=== PATIENT | male | born 1950 | race Caucasian/White ===

== ENCOUNTER → 2018-03-28 07:51 | Outpatient (CLI) | payer BC, SELFPAY ==
[2018-03-28 08:54] LABS: Add Manual Diff / Slide Review NO; Basophils Percent Auto 0.4 % (0-2); Eosinophils Percent Auto 3.1 % (2-4); Hematocrit 43.7 % (41-53); Hemoglobin 15.5 g/dL (13.5-17.5); Lymphocytes Percent Auto 6.7 % (25-40); Mean Corpuscular HGB Conc 35.6 % (30-36); Mean Corpuscular Hemoglobin 30.9 PG (26-34); Mean Corpuscular Volume 86.9 fL (80-100); Monocytes Percent Auto 7.8 % (3-14); Neutrophils Absolute Auto 11000 /uL (3000-5900); Platelet Count 170 X10^3/uL (150-400); Red Blood Cell Count 5.03 X10^6/uL (4.5-5.9); Red Cell Distribution Width 13.1 % (11.6-14.8); White Blood Cell Count 13.5 X10^3/uL (4.5-11.0)
[2018-03-28 09:27] LABS: Alanine Aminotransferase 34 IU/L (21-72); Albumin 4.1 g/dL (3.5-5.0); Albumin Globulin Ratio 1.5 (1.0-2.8); Alkaline Phosphatase 67 U/L (38-126); Aspartate Aminotransferase 31 IU/L (17-59); BUN Creatinine Ratio 25.7 (6-22); Bilirubin Total 0.7 mg/dL (0.2-1.3); Blood Urea Nitrogen 18 mg/dL (9-20); Calcium 9.9 mg/dL (8.4-10.2); Carbon Dioxide 29 mmol/L (22-32); Chloride 104 mmol/L (98-107); Cholesterol 169 mg/dL (140-199); Estimated Glomerular Filt Rate > 60.0 mL/min (>60); Globulin 2.7 g/dL (1.7-4.1); Glucose 94 mg/dL (80-110); HDL Cholesterol 38 mg/dL (40-60); HEMOLYSIS < 15 (0-50); LDL Cholesterol Calculated 93 mg/dL (<100); Sodium 144 mmol/L (137-145); Total Protein 6.8 g/dL (6.3-8.2); Triglycerides 192 mg/dL (35-150)
[2018-03-28 09:57] LABS: Thyroid Stimulating Hormone 7.52 uIU/mL (0.47-4.68)
[2018-03-28 09:58] LABS: Prostate Specific Antigen Scrn 0.434 ng/mL (0.1-4.0)
== END ==
PROVIDERS: PCP Family Medicine; Visit Provider Family Medicine
DX: Z12.5 Encounter for screening for malignant neoplasm of prostate (principal); Z13.220 Encounter for screening for lipoid disorders; Z13.29 Encounter for screening for other suspected endocrine disorder
CPT/HCPCS: 36415; 80053; 80061; 84443; 85025; G0103

== ENCOUNTER → 2018-06-01 09:31 | Outpatient (CLI) | payer BC, SELFPAY ==
[2018-06-01 09:59] LABS: Add Manual Diff / Slide Review NO; Basophils Percent Auto 0.9 % (0-2); Eosinophils Percent Auto 5.4 % (2-4); Hematocrit 43.9 % (41-53); Hemoglobin 15.2 g/dL (13.5-17.5); Lymphocytes Percent Auto 20.1 % (25-40); Mean Corpuscular HGB Conc 34.6 % (30-36); Mean Corpuscular Hemoglobin 30.2 PG (26-34); Mean Corpuscular Volume 87.2 fL (80-100); Monocytes Percent Auto 11.3 % (3-14); Neutrophils Absolute Auto 3300 /uL (3000-5900); Neutrophils Percent Auto 62.3 % (50-75); Platelet Count 176 X10^3/uL (150-400); Red Blood Cell Count 5.04 X10^6/uL (4.5-5.9); Red Cell Distribution Width 12.7 % (11.6-14.8); White Blood Cell Count 5.2 X10^3/uL (4.5-11.0)
[2018-06-01 10:58] LABS: Free T3, Triiodothyronine Free 2.88 pg/mL (2.77-5.27); Free T4, Direct Thyroxine 0.58 ng/dL (0.78-2.19)
[2018-06-01 11:12] LABS: Thyroid Stimulating Hormone 5.63 uIU/mL (0.47-4.68)
== END ==
PROVIDERS: PCP Family Medicine; Visit Provider Family Medicine
DX: D72.829 Elevated white blood cell count, unspecified (principal); R79.89 Other specified abnormal findings of blood chemistry
CPT/HCPCS: 36415; 84439; 84443; 84481; 85025

== ENCOUNTER → 2018-08-02 10:32 | Outpatient (CLI) | payer BC, SELFPAY ==
--- NOTE | 2018-08-02 10:33 | DI.US.S_ITS ---
PROCEDURE: US THYROID INDICATIONS: ELEVATED TSH TECHNIQUE: Real-time scanning was performed of the thyroid gland, with image documentation. COMPARISON: None. FINDINGS: Right: Thyroid lobe measures 3.9 x 2.7 x 1.5 cm, and is diffusely heterogeneous in echotexture. Left: Thyroid lobe measures 3.7 x 1.9 x 1.6 cm, and is diffusely heterogeneous in echotexture. Isthmus: 4.5 mm thick. IMPRESSION: Diffusely heterogeneous thyroid. No focal nodules. Dictated by: Nasir Craft [facility] Interpreted: Nathan Nunez MD on 08/02/2018 at 11:30 Approved by: Nathan Nunez M.D. on 08/02/2018 at 13:23
== END ==
PROVIDERS: PCP Family Medicine; Visit Provider Family Medicine
DX: E07.9 Disorder of thyroid, unspecified (principal); R79.89 Other specified abnormal findings of blood chemistry
CPT/HCPCS: 76536

== ENCOUNTER → 2018-09-13 14:46 | Outpatient (CLI) | payer BC, SELFPAY ==
[2018-09-13 16:10] LABS: TSH w/ Reflex to FT4 2.79 uIU/mL (0.47-4.68)
== END ==
PROVIDERS: PCP Family Medicine; Visit Provider Family Medicine
DX: E03.9 Hypothyroidism, unspecified (principal)
CPT/HCPCS: 36415; 84443

== ENCOUNTER → 2018-11-16 14:09 | Outpatient (CLI) | payer BC, SELFPAY ==
--- NOTE | 2018-11-16 14:12 | DI.RAD.S_ITS ---
PROCEDURE: XR CHEST 2V INDICATIONS: Rib pain TECHNIQUE: 2 views of the chest were acquired. COMPARISON: None. FINDINGS: Surgical changes and devices: None. Lungs and pleura: Hyperinflation. Lungs are clear. No pleural effusions or pneumothorax. Mediastinum: Mediastinal contours are normal. Heart size is normal. Bones and chest wall: No suspicious bony abnormalities. Soft tissues appear unremarkable. There is left shoulder arthroplasty with a shoulder prosthesis in anatomic alignment. IMPRESSION: No acute cardiopulmonary disease. Hyperinflation suggesting COPD. Dictated by: Francisco Miranda M.D. on 11/16/2018 at 14:26 Approved by: Francisco Miranda M.D. on 11/16/2018 at 14:27
== END ==
PROVIDERS: PCP Family Medicine; Visit Provider Registered Nurse
DX: R07.81 Pleurodynia (principal)
CPT/HCPCS: 71046

== ENCOUNTER → 2019-11-07 10:01 | Outpatient (CLI) | payer BC, SELFPAY ==
[2019-11-07 12:07] LABS: Prostate Specific Antigen Scrn 0.461 ng/mL (0.1-4.0)
== END ==
PROVIDERS: PCP Family Medicine; Referring Provider Registered Nurse; Visit Provider Registered Nurse
DX: Z12.5 Encounter for screening for malignant neoplasm of prostate (principal); R39.15 Urgency of urination
CPT/HCPCS: 36415; G0103

== ENCOUNTER → 2020-05-05 10:14 | Outpatient (CLI) | payer BC, SELFPAY ==
[2020-05-05 11:15] LABS: Alanine Aminotransferase 36 IU/L (<50); Albumin 4.3 g/dL (3.5-5.0); Albumin Globulin Ratio 1.5 (1.0-2.8); Alkaline Phosphatase 78 U/L (38-126); Aspartate Aminotransferase 45 IU/L (17-59); BUN Creatinine Ratio 31.7 (6-22); Bilirubin Total 0.7 mg/dL (0.2-1.3); Blood Urea Nitrogen 20 mg/dL (9-20); Carbon Dioxide 28 mmol/L (22-32); Chloride 104 mmol/L (98-107); Estimated Glomerular Filt Rate > 60.0 mL/min (>60); Globulin 2.9 g/dL (1.7-4.1); Glucose 107 mg/dL (80-110); HEMOLYSIS 38 (0-50); Potassium 4.3 mmol/L (3.4-5.1); Sodium 137 mmol/L (137-145); Total Protein 7.2 g/dL (6.3-8.2)
[2020-05-05 11:41] LABS: TSH w/ Reflex to FT4 5.81 uIU/mL (0.47-4.68)
[2020-05-05 12:06] LABS: Free T4, Direct Thyroxine 0.71 ng/dL (0.78-2.19)
== END ==
PROVIDERS: PCP Family Medicine; Referring Provider Family Medicine; Visit Provider Family Medicine
DX: E03.9 Hypothyroidism, unspecified (principal)
CPT/HCPCS: 36415; 80053; 84439; 84443

== ENCOUNTER → 2020-08-29 12:23 | Outpatient (CLI) | payer BC, SELFPAY ==
[2020-08-29 13:38] LABS: TSH w/ Reflex to FT4 3.62 uIU/mL (0.47-4.68)
== END ==
PROVIDERS: PCP Family Medicine; Referring Provider Family Medicine; Visit Provider Family Medicine
DX: E03.9 Hypothyroidism, unspecified (principal)
CPT/HCPCS: 36415; 84443

== ENCOUNTER → 2020-10-09 08:58 | Outpatient (CLI) | payer BC, SELFPAY ==
[2020-10-09] MEDS: COVID-19 VACC #1, MRNA(MOD) 100 MCG/0.5 ML VIAL IM (09:05)
== END ==
PROVIDERS: PCP Family Medicine; Visit Provider Internal Medicine
DX: Z23 Encounter for immunization (principal)
CPT/HCPCS: 0011A; 91301

== ENCOUNTER → 2020-11-06 08:25 | Outpatient (CLI) | payer BC, SELFPAY ==
[2020-11-06] MEDS: COVID-19 VACC #2, MRNA(MOD) 100 MCG/0.5 ML VIAL IM (08:30)
== END ==
PROVIDERS: PCP Family Medicine; Visit Provider Internal Medicine
DX: Z23 Encounter for immunization (principal)
CPT/HCPCS: 0012A; 91301

== ENCOUNTER → 2021-07-24 09:42 | Outpatient (CLI) | payer BC, SELFPAY ==
[2021-07-24] MEDS: COVID-19 VACC #3, MRNA(MOD) 50 MCG/0.25 ML VIAL IM (09:46)
== END ==
PROVIDERS: PCP Family Medicine; Visit Provider Internal Medicine
DX: Z23 Encounter for immunization (principal)
CPT/HCPCS: 0013A; 91301

== ENCOUNTER → 2022-04-09 11:40 | Outpatient (CLI) | payer BC, SELFPAY ==
[2022-04-09 12:15] LABS: Add Manual Diff / Slide Review NO; Basophils Absolute Auto 0 /uL (0-100); Basophils Percent Auto 0.8 % (0-2); Eosinophils Absolute Auto 200 /uL (0-450); Eosinophils Percent Auto 2.8 % (2-4); Hematocrit 43.6 % (41-53); Hemoglobin 15.3 g/dL (13.5-17.5); Lymphocytes Absolute Auto 1100 /uL (1100-4500); Lymphocytes Percent Auto 20.6 % (25-40); Mean Corpuscular Hemoglobin 30.7 PG (26-34); Mean Corpuscular Volume 87.7 fL (80-100); Monocytes Absolute Auto 600 /uL (0-900); Monocytes Percent Auto 11.3 % (3-14); Neutrophils Absolute Auto 3500 /uL (1500-7000); Neutrophils Percent Auto 64.5 % (50-75); Platelet Count 161 X10^3/uL (150-400); Red Blood Cell Count 4.97 X10^6/uL (4.5-5.9); Red Cell Distribution Width 12.7 % (11.6-14.8); White Blood Cell Count 5.5 X10^3/uL (4.5-11.0)
[2022-04-09 12:36] LABS: Alanine Aminotransferase 27 IU/L (<50); Albumin 4.4 g/dL (3.5-5.0); Albumin Globulin Ratio 1.6 (1.0-2.8); Alkaline Phosphatase 70 U/L (38-126); Aspartate Aminotransferase 38 IU/L (17-59); BUN Creatinine Ratio 26.5 (6-22); Blood Urea Nitrogen 18 mg/dL (9-20); Calcium 8.9 mg/dL (8.4-10.2); Carbon Dioxide 27 mmol/L (22-32); Chloride 103 mmol/L (98-107); Cholesterol 164 mg/dL (140-199); Estimated Glomerular Filt Rate > 60 mL/min (>60); Globulin 2.8 g/dL (1.7-4.1); Glucose 100 mg/dL (80-110); HDL Cholesterol 44 mg/dL (40-60); HEMOLYSIS < 15 (0-50); LDL Cholesterol Calculated 96 mg/dL (<100); Sodium 138 mmol/L (137-145); Total Protein 7.2 g/dL (6.3-8.2); Triglycerides 118 mg/dL (35-150)
[2022-04-09 13:07] LABS: Prostate Specific Antigen Scrn 0.508 ng/mL (0.1-4.0)
== END ==
PROVIDERS: PCP Family Medicine; Referring Provider Family Medicine; Visit Provider Family Medicine
DX: E03.9 Hypothyroidism, unspecified (principal); Z12.5 Encounter for screening for malignant neoplasm of prostate
CPT/HCPCS: 36415; 80053; 80061; 84443; 85025; G0103

== ENCOUNTER → 2022-10-19 09:30 | Outpatient (CLI) | payer BC, SELFPAY ==
--- NOTE | 2022-10-19 09:31 | DI.RAD.S_ITS ---
PROCEDURE: XR KNEE LT 3V INDICATIONS: Left knee pain, swelling - suspect OA TECHNIQUE: 3 views of the knee were acquired. COMPARISON: None. FINDINGS: Bones: No fractures or dislocations. No suspicious bony lesions. Mild tricompartmental knee joint degeneration. Minimal joint space narrowing with weight-bearing. Soft tissues: No joint effusion. No suspicious soft tissue calcifications. IMPRESSION: Mild osteoarthritic changes. Dictated by: Francisco Miranda M.D. on 10/19/2022 at 10:52 Approved by: Francisco Miranda M.D. on 10/19/2022 at 10:53
== END ==
PROVIDERS: PCP Family Medicine; Referring Provider Physician Assistant; Visit Provider Physician Assistant
DX: M25.562 Pain in left knee (principal)
CPT/HCPCS: 73562

== ENCOUNTER → 2022-11-12 13:04 | Outpatient (CLI) | payer MEDICARE, BC, SELFPAY ==
--- NOTE | 2022-11-12 | DI.MRI.S_ITS ---
PROCEDURE: MR KNEE LT WO CON INDICATIONS: L KNEE PAIN TECHNIQUE: Noncontrast sagittal PD fast spin echo and T2 fast spin echo with fat saturation, sagittal 3-D FLASH with fat saturation; coronal T1 spin echo and PD fast spin echo with fat saturation, and axial PD fast spin echo with fat saturation through the knee. COMPARISON: [facility], CR, XR KNEE LT 3V, 10/19/2022, 9:31. FINDINGS: Image quality: Excellent. Menisci: Medial extrusion of the medial meniscus is present. There is moderate ill-defined T2 signal elevation at the posterior meniscal capsular junction of the posterior horn medial meniscus. Vague linear oblique high T2 signal intensity traverses the peripheral 3rd of the posterior horn medial meniscus, demonstrating inferior articular surface extension. Linear horizontal high signal intensity traverses the lateral meniscal body, involving the inner, middle, and peripheral thirds, demonstrating superior articular surface extension. Cruciate ligaments: The anterior and posterior cruciate ligaments appear intact. Medial structures: The medial collateral ligament appears intact. Visualized portions of the pes anserinus tendons appear normal. No abnormal bursal fluid. There is moderate T2 signal elevation within and adjacent to the tibial insertion of the semimembranosus tendon. Lateral structures: The lateral collateral ligament demonstrates mild T2 signal elevation at the femoral origin. The long and short heads of the biceps femoris tendon appear intact. The popliteus tendon appears normal. Iliotibial band appears normal. Anterior structures: The quadriceps and patellar tendons appear intact. There is mild T2 signal elevation within the quadriceps and patellar tendons at the patellar insertion sites. Patellar alignment is normal. No femoral trochlear dysplasia or ventral trochlear prominence. No edema in the infrapatellar fat pad. Bones and cartilage: No bone marrow contusions or fractures. There is mild tricompartmental periarticular osteophyte formation. Moderate articular cartilage loss diffusely overlies the weight-bearing aspects of the medial femoral condyle and medial tibial plateau. Joint space: There is a small knee joint effusion and a small Huynh's cyst. Normal appearing synovial plicae are incidentally noted. IMPRESSION: 1. Medial and lateral meniscal tearing. 2. Tricompartmental osteoarthritis with associated articular cartilage loss. 3. Quadriceps and patellar tendinopathy. 4. Insertional tendinitis of the semimembranosus. 5. Knee joint effusion and Huynh's cyst. Dictated by: Raissa Price M.D. on 11/12/2022 at 13:59 Transcribed by: ARIANA on 11/12/2022 at 14:02 Approved by: Raissa Price M.D. on 11/12/2022 at 16:39
== END ==
PROVIDERS: PCP Family Medicine; Referring Provider Student in an Organized Health Care Education/Training Program; Visit Provider Student in an Organized Health Care Education/Training Program
DX: S83.242A Other tear of medial meniscus, current injury, left knee, initial encounter (principal); S83.282A Other tear of lateral meniscus, current injury, left knee, initial encounter; M76.52 Patellar tendinitis, left knee; M25.462 Effusion, left knee; M17.12 Unilateral primary osteoarthritis, left knee; M25.562 Pain in left knee
CPT/HCPCS: 73721

== ENCOUNTER → 2022-12-17 12:54 | Outpatient (CLI) | payer MEDICARE, BC, SELFPAY ==
--- NOTE | 2022-12-17 | DI.MRI.S_ITS ---
PROCEDURE: MR KNEE RT WO CON INDICATIONS: PAIN AND SWELLING IN RIGHT KNEE TECHNIQUE: Noncontrast sagittal PD fast spin echo and T2 fast spin echo with fat saturation, sagittal 3-D FLASH with fat saturation; coronal T1 spin echo and PD fast spin echo with fat saturation, and axial PD fast spin echo with fat saturation through the knee. COMPARISON: [facility], MR, MR KNEE LT WO CON, 11/12/2022, 13:29. FINDINGS: Image quality: Excellent. Menisci: T there is partial detachment of the medial meniscal body and posterior horn. Linear oblique high T2 signal intensity traverses the inner, middle, and peripheral thirds of the medial meniscal body and posterior horn demonstrating inferior articular surface extension, indicating oblique tearing. Truncation of the free edge of the posterior horn medial meniscus is present, indicating radial tearing. Linear oblique and horizontal high T2 signal intensity traverses the inner, middle, and peripheral thirds of the anterior horn and body of the lateral meniscus, demonstrating inferior articular surface extension, indicating complex tearing. Cruciate ligaments: There is moderate 10 UA mccartney in mild posterior bowing of the posterior cruciate ligament, indicating partial thickness tearing. Low-grade partial-thickness intrasubstance tearing of the mid and superior aspect of the posterior cruciate ligament. Medial structures: The medial collateral ligament appears intact. Visualized portions of the pes anserinus tendons appear normal. Mild T2 signal elevation within and adjacent to the tibial insertion site of the semimembranosus. No abnormal bursal fluid. Lateral structures: The lateral collateral ligament, long and short heads of the biceps femoris tendon appear intact. The popliteus tendon appears normal. Iliotibial band appears normal. Anterior structures: The quadriceps and patellar tendons appear intact. Patellar alignment is normal. No femoral trochlear dysplasia or ventral trochlear prominence. Moderate edema in the infrapatellar fat pad. Bones and cartilage: No bone marrow contusions or fractures. Mild tricompartmental periarticular osteophyte formation. Severe articular cartilage loss diffusely overlies the weight-bearing aspects of the medial femoral condyle and medial tibial plateau. Joint space: There is a small knee joint effusion and a trace Huynh's cyst. Small ganglion cyst along the popliteus. Normal appearing synovial plicae are incidentally noted. IMPRESSION: 1. Tricompartmental osteoarthritis with associated articular cartilage loss. 2. Medial and lateral meniscal tearing. 3. Partial-thickness tearing of the anterior and posterior cruciate ligaments. 4. Knee joint effusion and Huynh's cyst. 5. Insertional tendinitis of the semimembranosus. Dictated by: Raissa Price M.D. on 12/17/2022 at 13:59 Approved by: Raissa Price M.D. on 12/17/2022 at 14:02
== END ==
PROVIDERS: PCP Family Medicine; Referring Provider Student in an Organized Health Care Education/Training Program; Visit Provider Student in an Organized Health Care Education/Training Program
DX: S83.271A Complex tear of lateral meniscus, current injury, right knee, initial encounter (principal); S83.241A Other tear of medial meniscus, current injury, right knee, initial encounter; S83.511A Sprain of anterior cruciate ligament of right knee, initial encounter; S83.521A Sprain of posterior cruciate ligament of right knee, initial encounter; M17.11 Unilateral primary osteoarthritis, right knee; M71.21 Synovial cyst of popliteal space [Baker], right knee; M25.461 Effusion, right knee; M25.561 Pain in right knee
CPT/HCPCS: 73721

== ENCOUNTER → 2023-02-01 14:33 | Outpatient (CLI) | payer MEDICARE, BC, SELFPAY ==
--- NOTE | 2023-02-01 14:35 | DI.RAD.S_ITS ---
PROCEDURE: XR FINGER RT MIN 2V INDICATIONS: pain PIP joint 3rd finger TECHNIQUE: AP hand, 2 views of the 3rd digit acquired. COMPARISON: None. FINDINGS: Bones: No fractures or dislocations. No suspicious bony lesions. Soft tissues: No suspicious soft tissue calcifications. IMPRESSION: No acute osseous abnormality. If symptoms persist, follow-up radiographs and/or CT or MRI may be helpful for further evaluation. Dictated by: Kike Silva M.D. on 02/01/2023 at 17:21 Approved by: Kike Silva M.D. on 02/01/2023 at 17:23
== END ==
PROVIDERS: PCP Family Medicine; Referring Provider Family Medicine; Visit Provider Family Medicine
DX: M79.644 Pain in right finger(s) (principal)
CPT/HCPCS: 73140

== ENCOUNTER 2023-04-20 10:15 | Outpatient (RCR) | payer MEDICARE, BC, SELFPAY ==
--- NOTE | 2023-03-04 15:00 | PT.OIE ---
Current Diagnoses Other chronic pain (03/04/23) Derangement of unspecified meniscus due to old tear or injury, right knee (03/04/23) Derangement of unspecified meniscus due to old tear or injury, left knee (03/04/23) Pain in right shoulder (03/04/23) Pain in right knee (03/04/23) Pain in left knee (03/04/23) Pain in unspecified knee (03/04/23) Stiffness of right knee, not elsewhere classified (03/04/23) Stiffness of left knee, not elsewhere classified (03/04/23) Past Medical History (Last Updated 02/01/23 @ 14:17 by Shazia Ramos DO) Cat bite Chickenpox (1955) Chronic knee pain Fractures (1960) Hypothyroidism Measles (1957) Mumps (1956) Pneumothorax (1987) Shoulder pain (2004) Past Surgical History (Last Reviewed 04/22/22 @ 17:10 by Christiane Mcclain DO) Hx of hernia repair () Hx of left knee surgery (1991) Hx of right knee surgery (1989) Hx of shoulder replacement (2012) Visit Care Team Role Provider Type Shazia Ramos DO Attending Provider Physician Family Provider Primary Care Provider Referring Provider Specialty: Family Practice Address: [address] [place] [address], [address], [facility] Email: [email or web address] Initial Evaluation PT-OP-A Visit Information Start: 03/04/23 15:17 Freq: Status: Active Protocol: Document 03/04/23 14:20 DCW (Rec: 03/04/23 15:18 DCW [id number]) Out-Patient Physical Therapy Visit Information Visit Information Visit Type Initial Evaluation Visit Start Time 14:20 Visit Stop Time 15:00 Total Visit Minutes 40 Visit Number 1 Number of CLAIMS COORDINATOR Visits 0 Evaluation Information Evaluation Date 03/04/23 PT-OP-B Current Condition Start: 03/04/23 15:17 Freq: Status: Active Protocol: Document 03/04/23 14:20 DCW (Rec: 03/07/23 14:48 DCW [id number]) Current Condition History of Current Condition Onset Date Long-standing history Current Complaints Bilateral knee pain, Right shoulder pain, Right hand pain History of Current Condition Pt is a 72 year old male presenting with a long- standing history of bilateral knee and shoulder pain. Pt has long participated in martial arts, which has resulted in multiple injuries. Notes that in the early , he had torn his meniscus bilaterally, with both surgically repairs through partial meniscectomy. They had been doing very well for years, but in September of this year, pt reports he felt a twinge in both knees while working on his golf swing, and then a few days later was helping to move a couch, and re-injured both knees. Pt underwent a further partial meniscectomy on his left knee earlier this year, with plans to have his right knee done whenever I can get it scheduled. Pt reports that while recovering from his most recent meniscus surgery, he was doing some UE workouts, and felt a strain in his right biceps, and has been experiencing ongoing pain in his right anterior shoulder. Pt reports he underwent a L TSA in 2013, has tried to perform some of his post-op exercises on his right arm, which has helped somewhat, but when his right shoulder flares-up, experiences pain and stiffness in his 2nd and 3rd PIP and 3rd DIP in his right hand. Pt complains mostly of just general overall stiffness and pain moving around, wants to strengthen his left LE s/p meniscus repair, and strengthen his right LE pre-meniscus repair. PT-OP-C Subjective Start: 03/04/23 15:17 Freq: Status: Active Protocol: Document 03/04/23 14:20 DCW (Rec: 03/04/23 15:22 DCW [id number]) OP-PT Subjective Patient Comments Patient Comments I want to be able to use my knees like I used to. And I'm not talking about when I was 18, I mean like when I was 70. Or even 7 months ago. Patient Questionnaires Lower Extremity Functional Scale LEFS Score 26/80 = 32.5% Oswestry Low Back Index Oswestry Score 30/50 = 60% OP-PT Pain Assessment Pain Assessment Grid Paper Pain Assessment Grid Completed Yes Location Right Shoulder Intensity 6 Scale Used Numeric (0 - 10) Bilateral Knee Intensity 7 Scale Used Numeric (0 - 10) PT-OP-F Manual Assessment Start: 03/04/23 15:17 Freq: Status: Active Protocol: Document 03/04/23 14:20 DCW (Rec: 03/04/23 17:07 DCW [id number]) Manual Assessments Soft Tissue Assessment Soft Tissue Mobility Assessment Long-head biceps tendon pain, tenderness to palpation 2/4: pain with wincing. Bilateral hamstring and calf hypertonia PT-OP-K Range of Motion Start: 03/04/23 15:17 Freq: Status: Active Protocol: Document 03/04/23 14:20 DCW (Rec: 03/04/23 17:07 DCW [id number]) Knee Goniometric Range of Motion Knee Right Knee ROM WFL No Patient Position Supine Flexion Active (degrees) 123 Extension Active (degrees) 10 Left Knee ROM WFL No Patient Position Supine Flexion Active (degrees) 111 Extension Active (degrees) 8 PT-OP-L Special Tests Start: 03/04/23 15:17 Freq: Status: Active Protocol: Document 03/04/23 14:20 DCW (Rec: 03/04/23 17:07 DCW [id number]) Special Tests Shoulder Special Tests Yermarily's Biceps Test Results Positive Right Speed's Biceps Test Results Positive Right Martinez Luke Impingement Test Results Positive Right Grind Labrum Test Results Negative Apprehension Test Test Results Positive Right Anterior Draw Test Results Slight instability bilaterally AC Joint Compression Test Results Negative PT-OP-M Strength Start: 03/04/23 15:17 Freq: Status: Active Protocol: Document 03/04/23 14:20 DCW (Rec: 03/04/23 17:07 DCW [id number]) Hand Credentialing Assistant/Pinch Strength Hand Strength Right Credentialing Assistant (lbs) 70 Left Credentialing Assistant (lbs) 75 Knee Strength Knee Manual Muscle Testing Right Flexion (S2) 3+ Fair+ Extension (L3) 5 Normal Comments Pain with resisted flexion Left Flexion (S2) 3+ Fair+ Extension (L3) 5 Normal Comments Pain with resisted flexion PT-OP-T Assessment and Plan Start: 03/04/23 15:17 Freq: Status: Active Protocol: Document 03/04/23 14:20 DCW (Rec: 03/07/23 17:16 DCW [id number]) Physical Therapy Assessment Rehab Potential Rehabilitation Potential Good Evaluation Complexity Number of Personal Factors/Comorbidities 3 or More Number of Body Systems Impaired 4 or More Clinical Presentation at Evaluation Unstable Impairments Impairments Functional Activities, Functional Mobility,Pain,ROM, Soft Tissue Mobility,Strength, Tone Goals Three Impairment Right shoulder pain radiates into hand Utility Engineer Goal (LTG) Pt to demonstrate elimination of hand pain associated with shoulder stiffness in order to improve his ability to participate in hobbies which require bilateral fine motor skills LTG Duration 05/04/23 Two Impairment Bilateral knee extension restriction, lacking 8? L and lacking 10? R Utility Engineer Goal (LTG) Pt to display bilateral knee ROM 0-125? to improve ability to up and down from the ground for gardening. LTG Duration 05/04/23 One Impairment Pt does not have an appropriate home exercise program Short Term Goal (STG) Pt to be independent and compliant with an appropriate HEP STG Duration 04/03/23 Assessment Summary Assessment Pt presents with sings and symptoms consistent with bilateral meniscus derangement, left knee post- surgical and right knee pre- surgical. Additionally, pt exhibits signs and symptoms consistent with right biceps tendonitis, with point- specific pain along bicipital groove and positive biceps and apprehension testing. Pt has had a long-standing participation in martial arts, and feels these injuries have limited his ability to perform his preferred hobbies. Pt does have bilateral knee stiffness and bilateral flexion weakness. Pt should benefit from skilled therapy focusing on pain control, LE/ UE strengthening, joint mobilizations, ROM improvement , and increased functional mobility. Physical Therapy Plan Frequency and Duration Frequency of Treatment 2x/Week Plan of Care Start Date 03/04/23 Plan of Care End Date 05/04/23 Therapeutic Interventions Therapeutic Interventions Home Exercise Program,Joint Mobilizations,Manual Therapy, Neuromuscular Re-education, Patient/Caregiver Education, Self-Care/Home Management,Soft Tissue Mobilization,Taping, Therapeutic Activities, Therapeutic Exercises Modalities Cold Pack/Ice Massage,Electric Stimulation,Hot Packs, Iontophoresis,Ultrasound Other Therapeutic Interventions Iontophoresis with Dexamethasone 4 mg/mL Next Visit Focus/Plan Next Note Type Treatment Note Next Visit Plan B LE strengthening, joint mobilizations, Bicipital Ionto ?
--- NOTE | 2023-03-04 15:00 | PT.OPPOC ---
Physical, Occupational & Speech Therapy At [facility] Current Diagnoses Other chronic pain (03/04/23) Derangement of unspecified meniscus due to old tear or injury, right knee (03/04/23) Derangement of unspecified meniscus due to old tear or injury, left knee (03/04/23) Pain in right shoulder (03/04/23) Pain in right knee (03/04/23) Pain in left knee (03/04/23) Pain in unspecified knee (03/04/23) Stiffness of right knee, not elsewhere classified (03/04/23) Stiffness of left knee, not elsewhere classified (03/04/23) Visit Care Team Role Provider Type Shazia Ramos DO Attending Provider Physician Family Provider Primary Care Provider Referring Provider Specialty: Family Practice Address: [address] [place] [address], [address], [facility] Email: [email or web address] Plan Of Care PT-OP-T Assessment and Plan Start: 03/04/23 15:17 Freq: Status: Active Protocol: Document 03/04/23 14:20 DCW (Rec: 03/07/23 17:16 DCW [id number]) Physical Therapy Assessment Rehab Potential Rehabilitation Potential Good Evaluation Complexity Number of Personal Factors/Comorbidities 3 or More Number of Body Systems Impaired 4 or More Clinical Presentation at Evaluation Unstable Impairments Impairments Functional Activities, Functional Mobility,Pain,ROM, Soft Tissue Mobility,Strength, Tone Goals Three Impairment Right shoulder pain radiates into hand Correction Goal (LTG) Pt to demonstrate elimination of hand pain associated with shoulder stiffness in order to improve his ability to participate in hobbies which require bilateral fine motor skills LTG Duration 05/04/23 Two Impairment Bilateral knee extension restriction, lacking 8? L and lacking 10? R Chief Executive Officer Goal (LTG) Pt to display bilateral knee ROM 0-125? to improve ability to up and down from the ground for gardening. LTG Duration 05/04/23 One Impairment Pt does not have an appropriate home exercise program Short Term Goal (STG) Pt to be independent and compliant with an appropriate HEP STG Duration 04/03/23 Assessment Summary Assessment Pt presents with sings and symptoms consistent with bilateral meniscus derrangement, left knee post- surgical and right knee pre- surgical. Additionally, pt exhibits signs and symptoms consistent with right biceps tendonitis, with point- specific pain along bicipital groove and positive biceps and apprehension testing. Pt has had a long-standing participation in martial arts, and feels these injuries have limited his ability to perform his preferred hobbies. Pt does have bilateral knee stiffness and bilateral flexion weakness. Pt should benefit from skilled therapy focusing on pain control, LE/ UE strengthening, joint mobilizations, ROM improvement , and increased functional mobility. Physical Therapy Plan Frequency and Duration Frequency of Treatment 2x/Week Plan of Care Start Date 03/04/23 Plan of Care End Date 05/04/23 Therapeutic Interventions Therapeutic Interventions Home Exercise Program,Joint Mobilizations,Manual Therapy, Neuromuscular Re-education, Patient/Caregiver Education, Self-Care/Home Management,Soft Tissue Mobilization,Taping, Therapeutic Activities, Therapeutic Exercises Modalities Cold Pack/Ice Massage,Electric Stimulation,Hot Packs, Iontophoresis,Ultrasound Other Therapeutic Interventions Iontophoresis with Dexamethasone 4 mg/mL Next Visit Focus/Plan Next Note Type Treatment Note Next Visit Plan B LE strengthening, joint mobilizations, Bicipital Ionto ? Plan of Care Dates Plan of Care Start Date 03/04/23 Plan of Care End Date 05/04/23 Electronically Signed by: Hansel Cabrera, BEATRIZ 03/07/23 3044 If you are in agreement with this Plan of Care, please return a signed and dated copy. I have reviewed this Plan of Care and certify that the skilled therapy services above are required to meet the patient?s needs. Physician Signature Date Printed Name and Credentials Clinical Instructor Signature Printed Name and Credentials
--- NOTE | 2023-03-08 13:33 | PT.OTN ---
Current Diagnoses Other chronic pain (03/08/23) Derangement of unspecified meniscus due to old tear or injury, right knee (03/08/23) Derangement of unspecified meniscus due to old tear or injury, left knee (03/08/23) Pain in right shoulder (03/08/23) Pain in right knee (03/08/23) Pain in left knee (03/08/23) Pain in unspecified knee (03/08/23) Stiffness of right knee, not elsewhere classified (03/08/23) Stiffness of left knee, not elsewhere classified (03/08/23) Physical Therapy Treatment Note PT-OP-A Visit Information Start: 03/04/23 15:17 Freq: Status: Active Protocol: Document 03/08/23 12:45 DCW (Rec: 03/08/23 13:32 DCW [id number]) Out-Patient Physical Therapy Visit Information Visit Information Visit Type Treatment Note Visit Start Time 12:45 Visit Stop Time 13:30 Total Visit Minutes 45 Visit Number 2 Number of LOTTERIES AGENT Visits 0 Evaluation Information Evaluation Date 03/04/23 PT-OP-B Current Condition Start: 03/04/23 15:17 Freq: Status: Active Protocol: Document 03/04/23 14:20 DCW (Rec: 03/07/23 14:48 DCW [id number]) Current Condition History of Current Condition Onset Date Long-standing history Current Complaints Bilateral knee pain, Right shoulder pain, Right hand pain History of Current Condition Pt is a 72 year old male presenting with a long- standing history of bilateral knee and shoulder pain. Pt has long participated in martial arts, which has resulted in multiple injuries. Notes that in the early , he had torn his meniscus bilaterally, with both surgically repairs through partial meniscectomy. They had been doing very well for years, but in September of this year, pt reports he felt a twinge in both knees while working on his golf swing, and then a few days later was helping to move a couch, and re-injured both knees. Pt underwent a further partial meniscectomy on his left knee earlier this year, with plans to have his right knee done whenever I can get it scheduled. Pt reports that while recovering from his most recent meniscus surgery, he was doing some UE workouts, and felt a strain in his right biceps, and has been experiencing ongoing pain in his right anterior shoulder. Pt reports he underwent a L TSA in 2013, has tried to perform some of his post-op exercises on his right arm, which has helped somewhat, but when his right shoulder flares-up, experiences pain and stiffness in his 2nd and 3rd PIP and 3rd DIP in his right hand. Pt complains mostly of just general overall stiffness and pain moving around, wants to strengthen his left LE s/p meniscus repair, and strengthen his right LE pre-meniscus repair. PT-OP-C Subjective Start: 03/04/23 15:17 Freq: Status: Active Protocol: Document 03/08/23 12:45 DCW (Rec: 03/08/23 13:32 DCW [id number]) OP-PT Subjective Patient Comments Patient Comments I'm a little stiffer today than I was last time. PT-OP-F Manual Assessment Start: 03/04/23 15:17 Freq: Status: Active Protocol: Document 03/04/23 14:20 DCW (Rec: 03/04/23 17:07 DCW [id number]) Manual Assessments Soft Tissue Assessment Soft Tissue Mobility Assessment Long-head biceps tendon pain, tenderness to palpation 2/4: pain with wincing. Bilateral hamstring and calf hypertonia PT-OP-K Range of Motion Start: 03/04/23 15:17 Freq: Status: Active Protocol: Document 03/04/23 14:20 DCW (Rec: 03/04/23 17:07 DCW [id number]) Knee Goniometric Range of Motion Knee Right Knee ROM WFL No Patient Position Supine Flexion Active (degrees) 123 Extension Active (degrees) 10 Left Knee ROM WFL No Patient Position Supine Flexion Active (degrees) 111 Extension Active (degrees) 8 PT-OP-L Special Tests Start: 03/04/23 15:17 Freq: Status: Active Protocol: Document 03/04/23 14:20 DCW (Rec: 03/04/23 17:07 DCW [id number]) Special Tests Shoulder Special Tests Yergason's Biceps Test Results Positive Right Speed's Biceps Test Results Positive Right Martinez Luke Impingement Test Results Positive Right Grind Labrum Test Results Negative Apprehension Test Test Results Positive Right Anterior Draw Test Results Slight instability bilaterally AC Joint Compression Test Results Negative PT-OP-M Strength Start: 03/04/23 15:17 Freq: Status: Active Protocol: Document 03/04/23 14:20 DCW (Rec: 03/04/23 17:07 DCW [id number]) Hand Sample Maker Hand/Pinch Strength Hand Strength Right Sample Maker Hand (lbs) 70 Left Sample Maker Hand (lbs) 75 Knee Strength Knee Manual Muscle Testing Right Flexion (S2) 3+ Fair+ Extension (L3) 5 Normal Comments Pain with resisted flexion Left Flexion (S2) 3+ Fair+ Extension (L3) 5 Normal Comments Pain with resisted flexion PT-OP-Q Treatments Start: 03/04/23 15:17 Freq: Status: Active Protocol: Document 03/08/23 12:45 DCW (Rec: 03/08/23 13:32 DCW [id number]) Cardio Equipment Recumbent Bicycle Duration (Minutes) 5 Resistance 4 Seat Position 5 Gym Equipment Cable Column (Body Solid) Leg Curl Resistance 50# Shuttle Balance Red Comments WBOS, Staggered, Lateral weight shift Therapeutic Ball Hip Flexion Exercise Details Resisted hip/knee flexion Ball Size/Color Red - 55 cm BLue T-band Bridging Exercise Details Bridging Ball Size/Color Red - 55 cm Body Position Supine Therapeutic Exercises Prone Exercises Prone Hang Prone Exercise Name Prone Hang Side bilateral Standing Exercises BOSU Lunge Standing Exercise Name BOSU Lunge Side bilateral TKE Standing Exercise Name TKE Side bilateral Resistance Green PT-OP-R Modalities Start: 03/08/23 13:32 Freq: Status: Active Protocol: Document 03/08/23 12:45 DCW (Rec: 03/08/23 13:33 DCW [id number]) Iontophoresis Treatment Right Anterior Shoulder Treatment Medication Dexamethasone (-) Medication Amount (mL) (ml) 1.0 Medication Dosage 4 mg/mL Treatment Polarity Negative to Negative Active Electrode Placement R Bicipital groove PT-OP-T Assessment and Plan Start: 03/04/23 15:17 Freq: Status: Active Protocol: Document 03/08/23 12:45 DCW (Rec: 03/08/23 13:32 DCW [id number]) Physical Therapy Assessment Impairments Impairments Functional Activities, Functional Mobility,Pain,ROM, Soft Tissue Mobility,Strength, Tone Goals Three Impairment Right shoulder pain radiates into hand Group Home Goal (LTG) Pt to demonstrate elimination of hand pain associated with shoulder stiffness in order to improve his ability to participate in hobbies which require bilateral fine motor skills LTG Duration 05/04/23 Two Impairment Bilateral knee extension restriction, lacking 8? L and lacking 10? R Group Home Goal (LTG) Pt to display bilateral knee ROM 0-125? to improve ability to up and down from the ground for gardening. LTG Duration 05/04/23 One Impairment Pt does not have an appropriate home exercise program Short Term Goal (STG) Pt to be independent and compliant with an appropriate HEP STG Duration 04/03/23 Assessment Summary Assessment Pt had increased left knee pain with staggered stance on Shuttle Balance, switched to R leg forward, felt much better , and was then able to return to left leg forward with minimized pain. Otherwise happy with overall activities, tolerated well. Physical Therapy Plan Frequency and Duration Frequency of Treatment 2x/Week Plan of Care Start Date 03/04/23 Plan of Care End Date 05/04/23 Therapeutic Interventions Therapeutic Interventions Home Exercise Program,Joint Mobilizations,Manual Therapy, Neuromuscular Re-education, Patient/Caregiver Education, Self-Care/Home Management,Soft Tissue Mobilization,Taping, Therapeutic Activities, Therapeutic Exercises Modalities Cold Pack/Ice Massage,Electric Stimulation,Hot Packs, Iontophoresis,Ultrasound Other Therapeutic Interventions Iontophoresis with Dexamethasone 4 mg/mL Next Visit Focus/Plan Next Note Type Treatment Note Next Visit Plan B LE strengthening, joint mobilizations, Bicipital Ionto ?
--- NOTE | 2023-03-11 12:59 | PT.OTN ---
Current Diagnoses Other chronic pain (03/11/23) Derangement of unspecified meniscus due to old tear or injury, right knee (03/11/23) Derangement of unspecified meniscus due to old tear or injury, left knee (03/11/23) Pain in right shoulder (03/11/23) Pain in right knee (03/11/23) Pain in left knee (03/11/23) Pain in unspecified knee (03/11/23) Stiffness of right knee, not elsewhere classified (03/11/23) Stiffness of left knee, not elsewhere classified (03/11/23) Physical Therapy Treatment Note PT-OP-A Visit Information Start: 03/04/23 15:17 Freq: Status: Active Protocol: Document 03/11/23 12:15 DCW (Rec: 03/11/23 12:59 DCW [id number]) Out-Patient Physical Therapy Visit Information Visit Information Visit Type Treatment Note Visit Start Time 12:15 Visit Stop Time 13:00 Total Visit Minutes 45 Visit Number 3 Number of SOFTWARE TEST DEVELOPER Visits 0 Evaluation Information Evaluation Date 03/04/23 PT-OP-B Current Condition Start: 03/04/23 15:17 Freq: Status: Active Protocol: Document 03/04/23 14:20 DCW (Rec: 03/07/23 14:48 DCW [id number]) Current Condition History of Current Condition Onset Date Long-standing history Current Complaints Bilateral knee pain, Right shoulder pain, Right hand pain History of Current Condition Pt is a 72 year old male presenting with a long- standing history of bilateral knee and shoulder pain. Pt has long participated in martial arts, which has resulted in multiple injuries. Notes that in the early , he had torn his meniscus bilaterally, with both surgically repairs through partial meniscectomy. They had been doing very well for years, but in September of this year, pt reports he felt a twinge in both knees while working on his golf swing, and then a few days later was helping to move a couch, and re-injured both knees. Pt underwent a further partial meniscectomy on his left knee earlier this year, with plans to have his right knee done whenever I can get it scheduled. Pt reports that while recovering from his most recent meniscus surgery, he was doing some UE workouts, and felt a strain in his right biceps, and has been experiencing ongoing pain in his right anterior shoulder. Pt reports he underwent a L TSA in 2013, has tried to perform some of his post-op exercises on his right arm, which has helped somewhat, but when his right shoulder flares-up, experiences pain and stiffness in his 2nd and 3rd PIP and 3rd DIP in his right hand. Pt complains mostly of just general overall stiffness and pain moving around, wants to strengthen his left LE s/p meniscus repair, and strengthen his right LE pre-meniscus repair. PT-OP-C Subjective Start: 03/04/23 15:17 Freq: Status: Active Protocol: Document 03/11/23 12:15 DCW (Rec: 03/11/23 12:59 DCW [id number]) OP-PT Subjective Patient Comments Patient Comments Pt saw the surgeon Tuesday, reports they won't be doing surgery on the right meniscus due to low return on investment, and if they were going to open him up, they might as well just do a TKA. They are trying injections now , will wait to see response. [place] the Ionto patch was very beneficial PT-OP-F Manual Assessment Start: 03/04/23 15:17 Freq: Status: Active Protocol: Document 03/04/23 14:20 DCW (Rec: 03/04/23 17:07 DCW [id number]) Manual Assessments Soft Tissue Assessment Soft Tissue Mobility Assessment Long-head biceps tendon pain, tenderness to palpation 2/4: pain with wincing. Bilateral hamstring and calf hypertonia PT-OP-K Range of Motion Start: 03/04/23 15:17 Freq: Status: Active Protocol: Document 03/04/23 14:20 DCW (Rec: 03/04/23 17:07 DCW [id number]) Knee Goniometric Range of Motion Knee Right Knee ROM WFL No Patient Position Supine Flexion Active (degrees) 123 Extension Active (degrees) 10 Left Knee ROM WFL No Patient Position Supine Flexion Active (degrees) 111 Extension Active (degrees) 8 PT-OP-L Special Tests Start: 03/04/23 15:17 Freq: Status: Active Protocol: Document 03/04/23 14:20 DCW (Rec: 03/04/23 17:07 DCW [id number]) Special Tests Shoulder Special Tests Yermarily's Biceps Test Results Positive Right Speed's Biceps Test Results Positive Right Martinez Luke Impingement Test Results Positive Right Grind Labrum Test Results Negative Apprehension Test Test Results Positive Right Anterior Draw Test Results Slight instability bilaterally AC Joint Compression Test Results Negative PT-OP-M Strength Start: 03/04/23 15:17 Freq: Status: Active Protocol: Document 03/04/23 14:20 DCW (Rec: 03/04/23 17:07 DCW [id number]) Hand Cook Seafood/Pinch Strength Hand Strength Right Cook Seafood (lbs) 70 Left Cook Seafood (lbs) 75 Knee Strength Knee Manual Muscle Testing Right Flexion (S2) 3+ Fair+ Extension (L3) 5 Normal Comments Pain with resisted flexion Left Flexion (S2) 3+ Fair+ Extension (L3) 5 Normal Comments Pain with resisted flexion PT-OP-Q Treatments Start: 03/04/23 15:17 Freq: Status: Active Protocol: Document 03/11/23 12:15 DCW (Rec: 03/11/23 12:59 DCW [id number]) Cardio Equipment Recumbent Bicycle Duration (Minutes) 5 Resistance 4 Seat Position 5 Gym Equipment Cable Column (Body Solid) Leg Curl Resistance 50# Shuttle Balance Red Comments Staggered ball toss, Lateral weight shift Therapeutic Exercises Standing Exercises BOSU Lunge Standing Exercise Name BOSU Lunge /c lateral T-band pull Side bilateral Resistance Green T-band Manual Therapy Treatment Soft Tissue Mobilization Calf Body Location B Calf Mobilization Type Instrument Assisted,Rolling, Sustained Pressure,Trigger Point Release Comments Roller PT-OP-R Modalities Start: 03/08/23 13:32 Freq: Status: Active Protocol: Document 03/11/23 12:15 DCW (Rec: 03/11/23 12:59 DCW [id number]) Iontophoresis Treatment Right Anterior Shoulder Treatment Medication Dexamethasone (-) Medication Amount (mL) (ml) 1.0 Treatment Polarity Negative to Negative Active Electrode Placement R Bicipital groove PT-OP-T Assessment and Plan Start: 03/04/23 15:17 Freq: Status: Active Protocol: Document 03/11/23 12:15 DCW (Rec: 03/11/23 12:59 DCW [id number]) Physical Therapy Assessment Impairments Impairments Functional Activities, Functional Mobility,Pain,ROM, Soft Tissue Mobility,Strength, Tone Goals Three Impairment Right shoulder pain radiates into hand Equipment Operator [employer] Goal (LTG) Pt to demonstrate elimination of hand pain associated with shoulder stiffness in order to improve his ability to participate in hobbies which require bilateral fine motor skills LTG Duration 05/04/23 Two Impairment Bilateral knee extension restriction, lacking 8? L and lacking 10? R Equipment Operator [employer] Goal (LTG) Pt to display bilateral knee ROM 0-125? to improve ability to up and down from the ground for gardening. LTG Duration 05/04/23 One Impairment Pt does not have an appropriate home exercise program Short Term Goal (STG) Pt to be independent and compliant with an appropriate HEP STG Duration 04/03/23 Assessment Summary Assessment Pt experiencing much less pain today with Shuttle Balance, no knee pain, just some calf tightness, potentially due to recent injection. Pt tolerating treatment very well , has been compliant with [facility] Physical Therapy Plan Frequency and Duration Frequency of Treatment 2x/Week Plan of Care Start Date 03/04/23 Plan of Care End Date 05/04/23 Therapeutic Interventions Therapeutic Interventions Home Exercise Program,Joint Mobilizations,Manual Therapy, Neuromuscular Re-education, Patient/Caregiver Education, Self-Care/Home Management,Soft Tissue Mobilization,Taping, Therapeutic Activities, Therapeutic Exercises Modalities Cold Pack/Ice Massage,Electric Stimulation,Hot Packs, Iontophoresis,Ultrasound Other Therapeutic Interventions Iontophoresis with Dexamethasone 4 mg/mL Next Visit Focus/Plan Next Note Type Treatment Note Next Visit Plan B LE strengthening, joint mobilizations, Bicipital Ionto
--- NOTE | 2023-03-16 09:00 | PT.OTN ---
Current Diagnoses Other chronic pain (03/16/23) Derangement of unspecified meniscus due to old tear or injury, right knee (03/16/23) Derangement of unspecified meniscus due to old tear or injury, left knee (03/16/23) Pain in right shoulder (03/16/23) Pain in right knee (03/16/23) Pain in left knee (03/16/23) Pain in unspecified knee (03/16/23) Stiffness of right knee, not elsewhere classified (03/16/23) Stiffness of left knee, not elsewhere classified (03/16/23) Physical Therapy Treatment Note PT-OP-A Visit Information Start: 03/04/23 15:17 Freq: Status: Active Protocol: Document 03/16/23 08:17 SP (Rec: 03/16/23 09:05 SP [id number]) Out-Patient Physical Therapy Visit Information Visit Information Visit Type Treatment Note Visit Start Time 08:17 Visit Stop Time 09:00 Total Visit Minutes 42 Visit Number 4 Number of OVEN ATTENDANT Visits 1 Evaluation Information Evaluation Date 03/04/23 PT-OP-B Current Condition Start: 03/04/23 15:17 Freq: Status: Active Protocol: Document 03/04/23 14:20 DCW (Rec: 03/07/23 14:48 DCW [id number]) Current Condition History of Current Condition Onset Date Long-standing history Current Complaints Bilateral knee pain, Right shoulder pain, Right hand pain History of Current Condition Pt is a 72 year old male presenting with a long- standing history of bilateral knee and shoulder pain. Pt has long participated in martial arts, which has resulted in multiple injuries. Notes that in the early , he had torn his meniscus bilaterally, with both surgically repairs through partial meniscectomy. They had been doing very well for years, but in September of this year, pt reports he felt a twinge in both knees while working on his golf swing, and then a few days later was helping to move a couch, and re-injured both knees. Pt underwent a further partial meniscectomy on his left knee earlier this year, with plans to have his right knee done whenever I can get it scheduled. Pt reports that while recovering from his most recent meniscus surgery, he was doing some UE workouts, and felt a strain in his right biceps, and has been experiencing ongoing pain in his right anterior shoulder. Pt reports he underwent a L TSA in 2013, has tried to perform some of his post-op exercises on his right arm, which has helped somewhat, but when his right shoulder flares-up, experiences pain and stiffness in his 2nd and 3rd PIP and 3rd DIP in his right hand. Pt complains mostly of just general overall stiffness and pain moving around, wants to strengthen his left LE s/p meniscus repair, and strengthen his right LE pre-meniscus repair. PT-OP-C Subjective Start: 03/04/23 15:17 Freq: Status: Active Protocol: Document 03/16/23 08:17 SP (Rec: 03/16/23 09:05 SP [id number]) OP-PT Subjective Patient Comments Patient Comments Pt reports was less stiff after last tx. Is thinking of getting a recumbent bike for home helped alot loosening up knees post. Is interested in return golf Apr/May. Finds more mobility in L knee and 3rd finger and not as much pain in am. Pt reported the iontophoresis patch over bicep went well removed at 4 hrs no problems, almost removed pain completely. PT-OP-F Manual Assessment Start: 03/04/23 15:17 Freq: Status: Active Protocol: Document 03/04/23 14:20 DCW (Rec: 03/04/23 17:07 DCW [id number]) Manual Assessments Soft Tissue Assessment Soft Tissue Mobility Assessment Long-head biceps tendon pain, tenderness to palpation 2/4: pain with wincing. Bilateral hamstring and calf hypertonia PT-OP-K Range of Motion Start: 03/04/23 15:17 Freq: Status: Active Protocol: Document 03/04/23 14:20 DCW (Rec: 03/04/23 17:07 DCW [id number]) Knee Goniometric Range of Motion Knee Right Knee ROM WFL No Patient Position Supine Flexion Active (degrees) 123 Extension Active (degrees) 10 Left Knee ROM WFL No Patient Position Supine Flexion Active (degrees) 111 Extension Active (degrees) 8 PT-OP-L Special Tests Start: 03/04/23 15:17 Freq: Status: Active Protocol: Document 03/04/23 14:20 DCW (Rec: 03/04/23 17:07 DCW [id number]) Special Tests Shoulder Special Tests Nahed's Biceps Test Results Positive Right Speed's Biceps Test Results Positive Right Martinez Luke Impingement Test Results Positive Right Grind Labrum Test Results Negative Apprehension Test Test Results Positive Right Anterior Draw Test Results Slight instability bilaterally AC Joint Compression Test Results Negative PT-OP-M Strength Start: 03/04/23 15:17 Freq: Status: Active Protocol: Document 03/04/23 14:20 DCW (Rec: 03/04/23 17:07 DCW [id number]) Hand Estate Manager/Pinch Strength Hand Strength Right Estate Manager (lbs) 70 Left Estate Manager (lbs) 75 Knee Strength Knee Manual Muscle Testing Right Flexion (S2) 3+ Fair+ Extension (L3) 5 Normal Comments Pain with resisted flexion Left Flexion (S2) 3+ Fair+ Extension (L3) 5 Normal Comments Pain with resisted flexion PT-OP-Q Treatments Start: 03/04/23 15:17 Freq: Status: Active Protocol: Document 03/16/23 08:17 SP (Rec: 03/16/23 09:05 SP [id number]) Cardio Equipment Recumbent Bicycle Duration (Minutes) 6 Resistance 4 Seat Position 5 Therapeutic Exercises Sitting Exercises hs stretch Sitting Exercise Name added HEP Side bilateral Reps/Minutes 20 sec 3 positions each (med/ lat/fwd) Comments good response stretch distal HS and calf self STMs Sitting Exercise Name added to HEP: quad, ITB, HS, calf Side bilateral Equipment Used rolling pin Reps/Minutes 3 min total Comments good feedback response, less tension in muscles Standing Exercises wrist TB Standing Exercise Name flex/ext/pron/sup/RD/UD added to HEP Side right Resistance TB #2 orange Reps/Minutes x15 each Comments cued arm/elbow straight at side, eccentric control TKE Standing Exercise Name TKE- HEP reviewed Side bilateral Resistance Green (behind lower post thigh )> #4 blue Reps/Minutes 2x20, pause hold 1-2 sec Comments cued slower pacing and knee track mid foot R>L support Manual Therapy Treatment Soft Tissue Mobilization hand Body Location R 3rd MCP Comments strumming muscles Calf Body Location B Calf, HS, ITB, quad, add Mobilization Type Instrument Assisted,Rolling Comments Roller Joint Mobilizations R wrist, hand, 3rd finger Joint flex/ext/med/lat/rotation Comments Manual and ed self forearm at side L hand grasp and mobilize R. PT-OP-R Modalities Start: 03/08/23 13:32 Freq: Status: Active Protocol: Document 03/11/23 12:15 DCW (Rec: 03/11/23 12:59 DCW [id number]) Iontophoresis Treatment Right Anterior Shoulder Treatment Medication Dexamethasone (-) Medication Amount (mL) (ml) 1.0 Treatment Polarity Negative to Negative Active Electrode Placement R Bicipital groove PT-OP-T Assessment and Plan Start: 03/04/23 15:17 Freq: Status: Active Protocol: Document 03/16/23 08:17 SP (Rec: 03/16/23 09:05 SP [id number]) Physical Therapy Assessment Goals Three Impairment Right shoulder pain radiates into hand Senior Living Goal (LTG) Pt to demonstrate elimination of hand pain associated with shoulder stiffness in order to improve his ability to participate in hobbies which require bilateral fine motor skills LTG Duration 05/04/23 Two Impairment Bilateral knee extension restriction, lacking 8? L and lacking 10? R Senior Living Goal (LTG) Pt to display bilateral knee ROM 0-125? to improve ability to up and down from the ground for gardening. LTG Duration 05/04/23 One Impairment Pt does not have an appropriate home exercise program Short Term Goal (STG) Pt to be independent and compliant with an appropriate HEP STG Duration 04/03/23 Assessment Summary Assessment Pt responded well to resisted wrist exercises for muscle use but same time active stretch on bicep and wrist/hand. Good response to manual R wrist/3rd MCP mobs and tactile cues for self performance. Good active HS stretch and manual LEs musculature, stated alot less tightness posterior thigh when coming to standing. Physical Therapy Plan Frequency and Duration Frequency of Treatment 2x/Week Plan of Care Start Date 03/04/23 Plan of Care End Date 05/04/23 Therapeutic Interventions Therapeutic Interventions Home Exercise Program,Joint Mobilizations,Manual Therapy, Neuromuscular Re-education, Patient/Caregiver Education, Self-Care/Home Management,Soft Tissue Mobilization,Taping, Therapeutic Activities, Therapeutic Exercises Modalities Cold Pack/Ice Massage,Electric Stimulation,Hot Packs, Iontophoresis,Ultrasound Other Therapeutic Interventions Iontophoresis with Dexamethasone 4 mg/mL Next Visit Focus/Plan Next Note Type Treatment Note Next Visit Plan REsponse to TB wrist, self stretch/rolling LEs, POC: B LE strengthening, joint mobilizations, Bicipital Ionto
--- NOTE | 2023-03-18 15:01 | PT.OTN ---
Current Diagnoses Other chronic pain (03/18/23) Derangement of unspecified meniscus due to old tear or injury, right knee (03/18/23) Derangement of unspecified meniscus due to old tear or injury, left knee (03/18/23) Pain in right shoulder (03/18/23) Pain in right knee (03/18/23) Pain in left knee (03/18/23) Pain in unspecified knee (03/18/23) Stiffness of right knee, not elsewhere classified (03/18/23) Stiffness of left knee, not elsewhere classified (03/18/23) Physical Therapy Treatment Note PT-OP-A Visit Information Start: 03/04/23 15:17 Freq: Status: Active Protocol: Document 03/18/23 14:15 DCW (Rec: 03/18/23 15:01 DCW [id number]) Out-Patient Physical Therapy Visit Information Visit Information Visit Type Treatment Note Visit Start Time 14:15 Visit Stop Time 15:00 Total Visit Minutes 45 Visit Number 5 Number of CASE FILLER Visits 0 Evaluation Information Evaluation Date 03/04/23 PT-OP-B Current Condition Start: 03/04/23 15:17 Freq: Status: Active Protocol: Document 03/04/23 14:20 DCW (Rec: 03/07/23 14:48 DCW [id number]) Current Condition History of Current Condition Onset Date Long-standing history Current Complaints Bilateral knee pain, Right shoulder pain, Right hand pain History of Current Condition Pt is a 72 year old male presenting with a long- standing history of bilateral knee and shoulder pain. Pt has long participated in martial arts, which has resulted in multiple injuries. Notes that in the early , he had torn his meniscus bilaterally, with both surgically repairs through partial meniscectomy. They had been doing very well for years, but in September of this year, pt reports he felt a twinge in both knees while working on his golf swing, and then a few days later was helping to move a couch, and re-injured both knees. Pt underwent a further partial meniscectomy on his left knee earlier this year, with plans to have his right knee done whenever I can get it scheduled. Pt reports that while recovering from his most recent meniscus surgery, he was doing some UE workouts, and felt a strain in his right biceps, and has been experiencing ongoing pain in his right anterior shoulder. Pt reports he underwent a L TSA in 2013, has tried to perform some of his post-op exercises on his right arm, which has helped somewhat, but when his right shoulder flares-up, experiences pain and stiffness in his 2nd and 3rd PIP and 3rd DIP in his right hand. Pt complains mostly of just general overall stiffness and pain moving around, wants to strengthen his left LE s/p meniscus repair, and strengthen his right LE pre-meniscus repair. PT-OP-C Subjective Start: 03/04/23 15:17 Freq: Status: Active Protocol: Document 03/18/23 14:15 DCW (Rec: 03/18/23 15:01 DCW [id number]) OP-PT Subjective Patient Comments Patient Comments Some days are better than others, it just somethimes feels like I take two steps forward, two steps back. Today is a two steps back day. The shoulder is coming along very nicely. PT-OP-F Manual Assessment Start: 03/04/23 15:17 Freq: Status: Active Protocol: Document 03/04/23 14:20 DCW (Rec: 03/04/23 17:07 DCW [id number]) Manual Assessments Soft Tissue Assessment Soft Tissue Mobility Assessment Long-head biceps tendon pain, tenderness to palpation 2/4: pain with wincing. Bilateral hamstring and calf hypertonia PT-OP-K Range of Motion Start: 03/04/23 15:17 Freq: Status: Active Protocol: Document 03/04/23 14:20 DCW (Rec: 03/04/23 17:07 DCW [id number]) Knee Goniometric Range of Motion Knee Right Knee ROM WFL No Patient Position Supine Flexion Active (degrees) 123 Extension Active (degrees) 10 Left Knee ROM WFL No Patient Position Supine Flexion Active (degrees) 111 Extension Active (degrees) 8 PT-OP-L Special Tests Start: 03/04/23 15:17 Freq: Status: Active Protocol: Document 03/04/23 14:20 DCW (Rec: 03/04/23 17:07 DCW [id number]) Special Tests Shoulder Special Tests Yergason's Biceps Test Results Positive Right Speed's Biceps Test Results Positive Right Martinez Luke Impingement Test Results Positive Right Grind Labrum Test Results Negative Apprehension Test Test Results Positive Right Anterior Draw Test Results Slight instability bilaterally AC Joint Compression Test Results Negative PT-OP-M Strength Start: 03/04/23 15:17 Freq: Status: Active Protocol: Document 03/04/23 14:20 DCW (Rec: 03/04/23 17:07 DCW [id number]) Hand Bobbin Dumper/Pinch Strength Hand Strength Right Bobbin Dumper (lbs) 70 Left Bobbin Dumper (lbs) 75 Knee Strength Knee Manual Muscle Testing Right Flexion (S2) 3+ Fair+ Extension (L3) 5 Normal Comments Pain with resisted flexion Left Flexion (S2) 3+ Fair+ Extension (L3) 5 Normal Comments Pain with resisted flexion PT-OP-Q Treatments Start: 03/04/23 15:17 Freq: Status: Active Protocol: Document 03/18/23 14:15 DCW (Rec: 03/18/23 15:01 DCW [id number]) Cardio Equipment Recumbent Bicycle Duration (Minutes) 6 Resistance 4 Seat Position 5 Gym Equipment Shuttle Recovery Plyometric hopping Details Hopping Resistance 25# Reps/Time Alternating feet Shuttle Balance Red Comments Staggered ball toss, Lateral weight shift Therapeutic Ball Hip Flexion Exercise Details Resisted hip/knee flexion Ball Size/Color Red - 55 cm Blue T-band Bridging Exercise Details Bridging /c HS curls Ball Size/Color Red - 55 cm Body Position Supine Therapeutic Exercises Standing Exercises BOSU Lunge Standing Exercise Name BOSU Lunge /c lateral T-band pull Side bilateral Resistance Green T-band PT-OP-R Modalities Start: 03/08/23 13:32 Freq: Status: Active Protocol: Document 03/18/23 14:15 DCW (Rec: 03/18/23 15:01 DCW [id number]) Iontophoresis Treatment Right Anterior Shoulder Treatment Medication Dexamethasone (-) Medication Amount (mL) (ml) 1.0 Treatment Polarity Negative to Negative Active Electrode Placement R Bicipital groove PT-OP-T Assessment and Plan Start: 03/04/23 15:17 Freq: Status: Active Protocol: Document 03/18/23 14:15 DCW (Rec: 03/18/23 15:01 DCW [id number]) Physical Therapy Assessment Impairments Impairments Functional Activities, Functional Mobility,Pain,ROM, Soft Tissue Mobility,Strength, Tone Goals Three Impairment Right shoulder pain radiates into hand Nursing Home Goal (LTG) Pt to demonstrate elimination of hand pain associated with shoulder stiffness in order to improve his ability to participate in hobbies which require bilateral fine motor skills LTG Duration 05/04/23 Two Impairment Bilateral knee extension restriction, lacking 8? L and lacking 10? R Boat Canvas Maker Installer Goal (LTG) Pt to display bilateral knee ROM 0-125? to improve ability to up and down from the ground for gardening. LTG Duration 05/04/23 One Impairment Pt does not have an appropriate home exercise program Short Term Goal (STG) Pt to be independent and compliant with an appropriate HEP STG Duration 04/03/23 Assessment Summary Assessment Pt making great progress, overall feeling significant improvement in knee pain levels and functional mobility . Still slight limitations in knee extension bilaterally, interested in adding T-ball exercises to HEP. Physical Therapy Plan Frequency and Duration Frequency of Treatment 2x/Week Plan of Care Start Date 03/04/23 Plan of Care End Date 05/04/23 Therapeutic Interventions Therapeutic Interventions Home Exercise Program,Joint Mobilizations,Manual Therapy, Neuromuscular Re-education, Patient/Caregiver Education, Self-Care/Home Management,Soft Tissue Mobilization,Taping, Therapeutic Activities, Therapeutic Exercises Modalities Cold Pack/Ice Massage,Electric Stimulation,Hot Packs, Iontophoresis,Ultrasound Other Therapeutic Interventions Iontophoresis with Dexamethasone 4 mg/mL Next Visit Focus/Plan Next Note Type Treatment Note Next Visit Plan Response to TB wrist, self stretch/rolling LEs, POC: B LE strengthening, joint mobilizations, Bicipital Ionto
--- NOTE | 2023-03-22 11:27 | PT.OTN ---
Current Diagnoses Other chronic pain (03/22/23) Derangement of unspecified meniscus due to old tear or injury, right knee (03/22/23) Derangement of unspecified meniscus due to old tear or injury, left knee (03/22/23) Pain in right shoulder (03/22/23) Pain in right knee (03/22/23) Pain in left knee (03/22/23) Pain in unspecified knee (03/22/23) Stiffness of right knee, not elsewhere classified (03/22/23) Stiffness of left knee, not elsewhere classified (03/22/23) Physical Therapy Treatment Note PT-OP-A Visit Information Start: 03/04/23 15:17 Freq: Status: Active Protocol: Document 03/22/23 10:32 NBM (Rec: 03/22/23 11:26 NBM [id number]) Out-Patient Physical Therapy Visit Information Visit Information Visit Type Treatment Note Visit Start Time 10:31 Visit Stop Time 11:17 Total Visit Minutes 46 Visit Number 6 Number of ELECTRIC ENGINE MECHANIC Visits 1 PT-OP-B Current Condition Start: 03/04/23 15:17 Freq: Status: Active Protocol: Document 03/04/23 14:20 DCW (Rec: 03/07/23 14:48 DCW [id number]) Current Condition History of Current Condition Onset Date Long-standing history Current Complaints Bilateral knee pain, Right shoulder pain, Right hand pain History of Current Condition Pt is a 72 year old male presenting with a long- standing history of bilateral knee and shoulder pain. Pt has long participated in martial arts, which has resulted in multiple injuries. Notes that in the early , he had torn his meniscus bilaterally, with both surgically repairs through partial meniscectomy. They had been doing very well for years, but in September of this year, pt reports he felt a twinge in both knees while working on his golf swing, and then a few days later was helping to move a couch, and re-injured both knees. Pt underwent a further partial meniscectomy on his left knee earlier this year, with plans to have his right knee done whenever I can get it scheduled. Pt reports that while recovering from his most recent meniscus surgery, he was doing some UE workouts, and felt a strain in his right biceps, and has been experiencing ongoing pain in his right anterior shoulder. Pt reports he underwent a L TSA in 2013, has tried to perform some of his post-op exercises on his right arm, which has helped somewhat, but when his right shoulder flares-up, experiences pain and stiffness in his 2nd and 3rd PIP and 3rd DIP in his right hand. Pt complains mostly of just general overall stiffness and pain moving around, wants to strengthen his left LE s/p meniscus repair, and strengthen his right LE pre-meniscus repair. PT-OP-C Subjective Start: 03/04/23 15:17 Freq: Status: Active Protocol: Document 03/22/23 10:32 NBM (Rec: 03/22/23 11:26 NBM [id number]) OP-PT Subjective Patient Comments Patient Comments Pt states his knees don't feel like plates any more and coming to physical therapy I can tell, I got up this morning and felt almost normal . I was really encouraged. PT-OP-F Manual Assessment Start: 03/04/23 15:17 Freq: Status: Active Protocol: Document 03/04/23 14:20 DCW (Rec: 03/04/23 17:07 DCW [id number]) Manual Assessments Soft Tissue Assessment Soft Tissue Mobility Assessment Long-head biceps tendon pain, tenderness to palpation 2/4: pain with wincing. Bilateral hamstring and calf hypertonia PT-OP-K Range of Motion Start: 03/04/23 15:17 Freq: Status: Active Protocol: Document 03/04/23 14:20 DCW (Rec: 03/04/23 17:07 DCW [id number]) Knee Goniometric Range of Motion Knee Right Knee ROM WFL No Patient Position Supine Flexion Active (degrees) 123 Extension Active (degrees) 10 Left Knee ROM WFL No Patient Position Supine Flexion Active (degrees) 111 Extension Active (degrees) 8 PT-OP-L Special Tests Start: 03/04/23 15:17 Freq: Status: Active Protocol: Document 03/04/23 14:20 DCW (Rec: 03/04/23 17:07 DCW [id number]) Special Tests Shoulder Special Tests Yergason's Biceps Test Results Positive Right Speed's Biceps Test Results Positive Right Martinez Luke Impingement Test Results Positive Right Grind Labrum Test Results Negative Apprehension Test Test Results Positive Right Anterior Draw Test Results Slight instability bilaterally AC Joint Compression Test Results Negative PT-OP-M Strength Start: 03/04/23 15:17 Freq: Status: Active Protocol: Document 03/04/23 14:20 DCW (Rec: 03/04/23 17:07 DCW [id number]) Hand Stock Grader/Pinch Strength Hand Strength Right Stock Grader (lbs) 70 Left Stock Grader (lbs) 75 Knee Strength Knee Manual Muscle Testing Right Flexion (S2) 3+ Fair+ Extension (L3) 5 Normal Comments Pain with resisted flexion Left Flexion (S2) 3+ Fair+ Extension (L3) 5 Normal Comments Pain with resisted flexion PT-OP-Q Treatments Start: 03/04/23 15:17 Freq: Status: Active Protocol: Document 03/22/23 10:32 NBM (Rec: 03/22/23 11:26 NBM [id number]) Cardio Equipment Recumbent Bicycle Duration (Minutes) 6 Resistance 4 Seat Position 5 Gym Equipment Shuttle Recovery Plyometric hopping Details Hopping Resistance 25# Reps/Time Alternating feet, cues for LE alignment Therapeutic Ball Hip Flexion Exercise Details Resisted hip/knee flexion Ball Size/Color Red - 55 cm Blue T-band Body Position Supine Reps/Duration x15 Bridging Exercise Details Bridging /c HS curls Ball Size/Color Red - 55 cm Body Position Supine Reps/Duration x8 Comments cues for breathwork due to breathholding - greatly improved self-awareness Therapeutic Exercises Standing Exercises wrist TB Standing Exercise Name flex/ext/pron/sup/RD/UD added to HEP Side right Resistance TB #2 orange Reps/Minutes x15 each Comments cued arm/elbow straight at side, eccentric control BOSU Lunge Standing Exercise Name BOSU Lunge /c lateral T-band pull Side bilateral Resistance Green T-band TKE Standing Exercise Name TKE- HEP reviewed Side bilateral Resistance Green (behind lower post thigh )> #4 blue Reps/Minutes 2x20, pause hold 1-2 sec Comments cued eccentric control and knee track mid foot PT-OP-R Modalities Start: 03/08/23 13:32 Freq: Status: Active Protocol: Document 03/18/23 14:15 DCW (Rec: 03/18/23 15:01 DCW [id number]) Iontophoresis Treatment Right Anterior Shoulder Treatment Medication Dexamethasone (-) Medication Amount (mL) (ml) 1.0 Treatment Polarity Negative to Negative Active Electrode Placement R Bicipital groove PT-OP-T Assessment and Plan Start: 03/04/23 15:17 Freq: Status: Active Protocol: Document 03/22/23 10:32 [facility] (Rec: 03/22/23 11:26 [facility] [id number]) Physical Therapy Assessment Impairments Impairments Functional Activities, Functional Mobility,Pain,ROM, Soft Tissue Mobility,Strength, Tone Goals Three Impairment Right shoulder pain radiates into hand Logistics Engineer Goal (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 LTG Duration 05/04/23 Two Impairment Bilateral knee extension restriction, lacking 8? L and lacking 10? R Prison Goal (LTG) Pt to display bilateral knee ROM 0-125? to improve ability to up and down from the ground for gardening. LTG Duration 05/04/23 One Impairment Pt does not have an appropriate home exercise program Short Term Goal (STG) Pt to be independent and compliant with an appropriate HEP (03/22/23): HEP Review STG Duration 04/03/23 Assessment Summary Assessment Treatment focus on HEP review and LE strengthening. Pt progresses towards Goal 3 with awakening without R finger pain today for the first time since onset. He tolerates treatment session without increase in symptoms, but requires consistent cues throughout treatment session for LE alignment with ex's. He also requires cues for breathholding and is educated on breathwork with bridging c/ hamstring curls and demonstrates improved self- awareness and carryover to other ex's. He requires cues with wrist ex's for standing and keeping elbow straight. Physical Therapy Plan Frequency and Duration Frequency of Treatment 2x/Week Plan of Care Start Date 03/04/23 Plan of Care End Date 05/04/23 Therapeutic Interventions Therapeutic Interventions Home Exercise Program,Joint Mobilizations,Manual Therapy, Neuromuscular Re-education, Patient/Caregiver Education, Self-Care/Home Management,Soft Tissue Mobilization,Taping, Therapeutic Activities, Therapeutic Exercises Modalities Cold Pack/Ice Massage,Electric Stimulation,Hot Packs, Iontophoresis,Ultrasound Other Therapeutic Interventions Iontophoresis with Dexamethasone 4 mg/mL Next Visit Focus/Plan Next Note Type Treatment Note Next Visit Plan Review HEP standing TB wrist w / elbow straight. Assess ionto from 7/7. POC: B LE strengthening, joint mobilizations, Bicipital Ionto
--- NOTE | 2023-03-29 16:18 | PT.OTN ---
Current Diagnoses Other chronic pain (03/29/23) Derangement of unspecified meniscus due to old tear or injury, right knee (03/29/23) Derangement of unspecified meniscus due to old tear or injury, left knee (03/29/23) Pain in right shoulder (03/29/23) Pain in right knee (03/29/23) Pain in left knee (03/29/23) Pain in unspecified knee (03/29/23) Stiffness of right knee, not elsewhere classified (03/29/23) Stiffness of left knee, not elsewhere classified (03/29/23) Physical Therapy Treatment Note PT-OP-A Visit Information Start: 03/04/23 15:17 Freq: Status: Active Protocol: Document 03/29/23 14:23 NBM (Rec: 03/29/23 16:15 NBM [id number]) Out-Patient Physical Therapy Visit Information Visit Information Visit Type Treatment Note Visit Start Time 14:21 Visit Stop Time 15:15 Total Visit Minutes 55 Visit Number 7 Number of MAINFRAME APPLICATIONS DEVELOPER Visits 2 PT-OP-B Current Condition Start: 03/04/23 15:17 Freq: Status: Active Protocol: Document 03/04/23 14:20 DCW (Rec: 03/07/23 14:48 DCW [id number]) Current Condition History of Current Condition Onset Date Long-standing history Current Complaints Bilateral knee pain, Right shoulder pain, Right hand pain History of Current Condition Pt is a 72 year old male presenting with a long- standing history of bilateral knee and shoulder pain. Pt has long participated in martial arts, which has resulted in multiple injuries. Notes that in the early , he had torn his meniscus bilaterally, with both surgically repairs through partial meniscectomy. They had been doing very well for years, but in September of this year, pt reports he felt a twinge in both knees while working on his golf swing, and then a few days later was helping to move a couch, and re-injured both knees. Pt underwent a further partial meniscectomy on his left knee earlier this year, with plans to have his right knee done whenever I can get it scheduled. Pt reports that while recovering from his most recent meniscus surgery, he was doing some UE workouts, and felt a strain in his right biceps, and has been experiencing ongoing pain in his right anterior shoulder. Pt reports he underwent a L TSA in 2013, has tried to perform some of his post-op exercises on his right arm, which has helped somewhat, but when his right shoulder flares-up, experiences pain and stiffness in his 2nd and 3rd PIP and 3rd DIP in his right hand. Pt complains mostly of just general overall stiffness and pain moving around, wants to strengthen his left LE s/p meniscus repair, and strengthen his right LE pre-meniscus repair. PT-OP-C Subjective Start: 03/04/23 15:17 Freq: Status: Active Protocol: Document 03/29/23 14:23 NBM (Rec: 03/29/23 16:15 [facility] [id number]) OP-PT Subjective Patient Comments Patient Comments Conner states he is feeling much better overall and is considering trying golfing in April, which he thought he might have to wait longer on. His R leg got caught up on the sheets last night and it was a sharp pain in the inside of the right knee and leg, he thinks meniscus or stress in the knee - it was fine as soon as he got untangled. His R shoulder is still doing better about 95% back, and his R hand is almost normal. He noticed resting on his R elbow stiffened his knuckle and as soon as he lifted his elbow off the table the finger came back to normal. He demonstrates massaging along medio/anterior forearm helps middle finger stiffness. Patient Reported Progress Improving PT-OP-F Manual Assessment Start: 03/04/23 15:17 Freq: Status: Active Protocol: Document 03/04/23 14:20 DCW (Rec: 03/04/23 17:07 DCW [id number]) Manual Assessments Soft Tissue Assessment Soft Tissue Mobility Assessment Long-head biceps tendon pain, tenderness to palpation 2/4: pain with wincing. Bilateral hamstring and calf hypertonia PT-OP-K Range of Motion Start: 03/04/23 15:17 Freq: Status: Active Protocol: Document 03/04/23 14:20 DCW (Rec: 03/04/23 17:07 DCW [id number]) Knee Goniometric Range of Motion Knee Right Knee ROM WFL No Patient Position Supine Flexion Active (degrees) 123 Extension Active (degrees) 10 Left Knee ROM WFL No Patient Position Supine Flexion Active (degrees) 111 Extension Active (degrees) 8 PT-OP-L Special Tests Start: 03/04/23 15:17 Freq: Status: Active Protocol: Document 03/04/23 14:20 DCW (Rec: 03/04/23 17:07 DCW [id number]) Special Tests Shoulder Special Tests Yermarily's Biceps Test Results Positive Right Speed's Biceps Test Results Positive Right Martinez Luke Impingement Test Results Positive Right Grind Labrum Test Results Negative Apprehension Test Test Results Positive Right Anterior Draw Test Results Slight instability bilaterally AC Joint Compression Test Results Negative PT-OP-M Strength Start: 03/04/23 15:17 Freq: Status: Active Protocol: Document 03/04/23 14:20 DCW (Rec: 03/04/23 17:07 DCW [id number]) Hand Electric Mule Operator/Pinch Strength Hand Strength Right Electric Mule Operator (lbs) 70 Left Electric Mule Operator (lbs) 75 Knee Strength Knee Manual Muscle Testing Right Flexion (S2) 3+ Fair+ Extension (L3) 5 Normal Comments Pain with resisted flexion Left Flexion (S2) 3+ Fair+ Extension (L3) 5 Normal Comments Pain with resisted flexion PT-OP-Q Treatments Start: 03/04/23 15:17 Freq: Status: Active Protocol: Document 03/29/23 14:23 NBM (Rec: 03/29/23 16:15 NBM [id number]) Cardio Equipment Recumbent Bicycle Duration (Minutes) 9 Resistance 5 Seat Position 5 Therapeutic Exercises Standing Exercises HS stretch Standing Exercise Name 1. personal HEP Double leg 2. SL hamstring stretch Side bilateral Reps/Minutes x30s ea Comments cues for form, no knee lockout , gentle pull, neutral foot positioning wrist TB Standing Exercise Name flex/ext/pron/sup/RD/UD HEP review Side right Resistance TB #2 orange Reps/Minutes x8 each Comments cued arm/elbow straight at side, eccentric control BOSU Lunge Standing Exercise Name BOSU Lunge /c lateral T-band pull Side bilateral Resistance Green T-band Reps/Minutes x10 weightshift w/ LE alignment, x8 w/ band Comments LLE fwd challenging to maintain balance TKE Standing Exercise Name TKE- HEP reviewed Side bilateral Resistance Lvl 4 Blue (behind lower post thigh) Reps/Minutes x15 ea, pause hold 1-2 sec Comments improved form Self-Care/Home Management Treatment Education Patient Education Body Mechanics,Home Exercise Program,Joint Protection,Pain Management Other Education Pt is educated not to ex or stretch through pain, and on LE alignment with exercises to decrease stress through the knee joint with excessive hip rotation. PT-OP-R Modalities Start: 03/08/23 13:32 Freq: Status: Active Protocol: Document 03/29/23 14:23 NBM (Rec: 03/29/23 16:15 [facility] [id number]) Iontophoresis Treatment Right Anterior Shoulder Treatment Medication Dexamethasone (-) Medication Amount (mL) (ml) 1.0 Treatment Polarity Negative to Negative Active Electrode Placement R Bicipital groove PT-OP-T Assessment and Plan Start: 03/04/23 15:17 Freq: Status: Active Protocol: Document 03/29/23 14:23 NBM (Rec: 03/29/23 16:15 [facility] [id number]) Physical Therapy Assessment Impairments Impairments Functional Activities, Functional Mobility,Pain,ROM, Soft Tissue Mobility,Strength, Tone Goals Three Impairment Right shoulder pain radiates into hand Nursing Home Goal (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 (03/29/23): Pt reports R shoulder almost fully recovered 95% and R hand is amost normal. Pt plans to try golfing in April. LTG Duration 05/04/23 Two Impairment Bilateral knee extension restriction, lacking 8? L and lacking 10? R Nursing Home Goal (LTG) Pt to display bilateral knee ROM 0-125? to improve ability to up and down from the ground for gardening. LTG Duration 05/04/23 One Impairment Pt does not have an appropriate home exercise program Short Term Goal (STG) Pt to be independent and compliant with an appropriate HEP (03/22/23): HEP Review w/ emphasis on breathwork d/t breathholding, LE alignment, neutral foot positioning, excessive knee flexion; resisted wrist ex's in standing w/ straight elbow. (03/29/23): HEP review w/ emphasis on LE alignment, improving pain due to excessive knee flexion, and resisted wrist ex's w/ straight arm. STG Duration 04/03/23 Progress Towards Goals Progress Towards Goals Progressing Toward Goals Assessment Summary Assessment Conner continues to progress towards goals, particularly Goals 1 of independence w/ HEP and 3 to demonstrate elimination of hand pain associated with shoulder stiffness. L knee pain with LLE fwd on BOSU resolves w/ cues for LE alignment. Pt is challenged LLE>RLE fwd with BOSU fwd lunge but improves balance and control w/ cueing. Pt is educated not to push through pain, and on LE alignment w/ ex's to decrease stress through the knee joint w/ excessive hip rotation. He demonstrates improved breathing with ex's and improved LE alignment with TKE ex and requires cues not to lock out knee. Physical Therapy Plan Frequency and Duration Frequency of Treatment 2x/Week Plan of Care Start Date 03/04/23 Plan of Care End Date 05/04/23 Therapeutic Interventions Therapeutic Interventions Home Exercise Program,Joint Mobilizations,Manual Therapy, Neuromuscular Re-education, Patient/Caregiver Education, Self-Care/Home Management,Soft Tissue Mobilization,Taping, Therapeutic Activities, Therapeutic Exercises Modalities Cold Pack/Ice Massage,Electric Stimulation,Hot Packs, Iontophoresis,Ultrasound Other Therapeutic Interventions Iontophoresis with Dexamethasone 4 mg/mL Next Visit Focus/Plan Next Note Type Treatment Note Next Visit Plan Review HEP standing TB wrist w / elbow straight. POC: B LE strengthening, joint mobilizations, Bicipital Ionto prn
--- NOTE | 2023-04-05 10:14 | PT.OTN ---
Current Diagnoses Other chronic pain (04/05/23) Derangement of unspecified meniscus due to old tear or injury, right knee (04/05/23) Derangement of unspecified meniscus due to old tear or injury, left knee (04/05/23) Pain in right shoulder (04/05/23) Pain in right knee (04/05/23) Pain in left knee (04/05/23) Pain in unspecified knee (04/05/23) Stiffness of right knee, not elsewhere classified (04/05/23) Stiffness of left knee, not elsewhere classified (04/05/23) Physical Therapy Treatment Note PT-OP-A Visit Information Start: 03/04/23 15:17 Freq: Status: Active Protocol: Document 04/05/23 09:30 DCW (Rec: 04/05/23 10:14 DCW [id number]) Out-Patient Physical Therapy Visit Information Visit Information Visit Type Treatment Note Visit Start Time 09:30 Visit Stop Time 10:15 Total Visit Minutes 45 Visit Number 9 Number of TOURIST INFORMATION OFFICER Visits 0 Evaluation Information Evaluation Date 03/04/23 PT-OP-B Current Condition Start: 03/04/23 15:17 Freq: Status: Active Protocol: Document 03/04/23 14:20 DCW (Rec: 03/07/23 14:48 DCW [id number]) Current Condition History of Current Condition Onset Date Long-standing history Current Complaints Bilateral knee pain, Right shoulder pain, Right hand pain History of Current Condition Pt is a 72 year old male presenting with a long- standing history of bilateral knee and shoulder pain. Pt has long participated in martial arts, which has resulted in multiple injuries. Notes that in the early , he had torn his meniscus bilaterally, with both surgically repairs through partial meniscectomy. They had been doing very well for years, but in September of this year, pt reports he felt a twinge in both knees while working on his golf swing, and then a few days later was helping to move a couch, and re-injured both knees. Pt underwent a further partial meniscectomy on his left knee earlier this year, with plans to have his right knee done whenever I can get it scheduled. Pt reports that while recovering from his most recent meniscus surgery, he was doing some UE workouts, and felt a strain in his right biceps, and has been experiencing ongoing pain in his right anterior shoulder. Pt reports he underwent a L TSA in 2013, has tried to perform some of his post-op exercises on his right arm, which has helped somewhat, but when his right shoulder flares-up, experiences pain and stiffness in his 2nd and 3rd PIP and 3rd DIP in his right hand. Pt complains mostly of just general overall stiffness and pain moving around, wants to strengthen his left LE s/p meniscus repair, and strengthen his right LE pre-meniscus repair. PT-OP-C Subjective Start: 03/04/23 15:17 Freq: Status: Active Protocol: Document 04/05/23 09:30 DCW (Rec: 04/05/23 10:14 DCW [id number]) OP-PT Subjective Patient Comments Patient Comments I feel like I've taken a step back. Maybe I'm just worn out from the pain. Both knees are bothering me, my hand wouldn' t really move when I first woke up. I know I have miles to improve, but I want to incrementally improve in feet, and I feel like it's inches. PT-OP-F Manual Assessment Start: 03/04/23 15:17 Freq: Status: Active Protocol: Document 03/04/23 14:20 DCW (Rec: 03/04/23 17:07 DCW [id number]) Manual Assessments Soft Tissue Assessment Soft Tissue Mobility Assessment Long-head biceps tendon pain, tenderness to palpation 2/4: pain with wincing. Bilateral hamstring and calf hypertonia PT-OP-K Range of Motion Start: 03/04/23 15:17 Freq: Status: Active Protocol: Document 03/04/23 14:20 DCW (Rec: 03/04/23 17:07 DCW [id number]) Knee Goniometric Range of Motion Knee Right Knee ROM WFL No Patient Position Supine Flexion Active (degrees) 123 Extension Active (degrees) 10 Left Knee ROM WFL No Patient Position Supine Flexion Active (degrees) 111 Extension Active (degrees) 8 PT-OP-L Special Tests Start: 03/04/23 15:17 Freq: Status: Active Protocol: Document 03/04/23 14:20 DCW (Rec: 03/04/23 17:07 DCW [id number]) Special Tests Shoulder Special Tests Nahed's Biceps Test Results Positive Right Speed's Biceps Test Results Positive Right Martinez Luke Impingement Test Results Positive Right Grind Labrum Test Results Negative Apprehension Test Test Results Positive Right Anterior Draw Test Results Slight instability bilaterally AC Joint Compression Test Results Negative PT-OP-M Strength Start: 03/04/23 15:17 Freq: Status: Active Protocol: Document 03/04/23 14:20 DCW (Rec: 03/04/23 17:07 DCW [id number]) Hand Manpower Development Specialist Manager/Pinch Strength Hand Strength Right Manpower Development Specialist Manager (lbs) 70 Left Manpower Development Specialist Manager (lbs) 75 Knee Strength Knee Manual Muscle Testing Right Flexion (S2) 3+ Fair+ Extension (L3) 5 Normal Comments Pain with resisted flexion Left Flexion (S2) 3+ Fair+ Extension (L3) 5 Normal Comments Pain with resisted flexion PT-OP-Q Treatments Start: 03/04/23 15:17 Freq: Status: Active Protocol: Document 04/05/23 09:30 DCW (Rec: 04/05/23 10:14 DCW [id number]) Cardio Equipment Recumbent Bicycle Duration (Minutes) 6 Resistance 6 Seat Position 6 Gym Equipment Shuttle Recovery Plyometric hopping Details Hopping Resistance 25# Reps/Time Alternating feet, LE alignment improved Shuttle Balance Red Comments Staggered ball toss a/p, Lateral weight shift Therapeutic Exercises Standing Exercises BOSU Lunge Standing Exercise Name BOSU Lunge /c lateral T-band pull valgus/varus Side bilateral Resistance Green T-band Reps/Minutes x15 Comments LLE fwd challenging to maintain balance Manual Therapy Treatment Soft Tissue Mobilization Calf Body Location B Calf, HS, ITB, quad, add Mobilization Type Instrument Assisted,Rolling Comments Roller PT-OP-R Modalities Start: 03/08/23 13:32 Freq: Status: Active Protocol: Document 03/29/23 14:23 NBM (Rec: 03/29/23 16:15 NBM [id number]) Iontophoresis Treatment Right Anterior Shoulder Treatment Medication Dexamethasone (-) Medication Amount (mL) (ml) 1.0 Treatment Polarity Negative to Negative Active Electrode Placement R Bicipital groove PT-OP-T Assessment and Plan Start: 03/04/23 15:17 Freq: Status: Active Protocol: Document 04/05/23 09:30 DCW (Rec: 04/05/23 10:14 DCW [id number]) Physical Therapy Assessment Impairments Impairments Functional Activities, Functional Mobility,Pain,ROM, Soft Tissue Mobility,Strength, Tone Goals Three Impairment Right shoulder pain radiates into hand Wiring Mechanic Goal (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 (03/29/23): Pt reports R shoulder almost fully recovered 95% and R hand is amost normal. Pt plans to try golfing in April. LTG Duration 05/04/23 Two Impairment Bilateral knee extension restriction, lacking 8? L and lacking 10? R Assisted Goal (LTG) Pt to display bilateral knee ROM 0-125? to improve ability to up and down from the ground for gardening. LTG Duration 05/04/23 One Impairment Pt does not have an appropriate home exercise program Short Term Goal (STG) Pt to be independent and compliant with an appropriate HEP (03/22/23): HEP Review w/ emphasis on breathwork d/t breathholding, LE alignment, neutral foot positioning, excessive knee flexion; resisted wrist ex's in standing w/ straight elbow. (03/29/23): HEP review w/ emphasis on LE alignment, improving pain due to excessive knee flexion, and resisted wrist ex's w/ straight arm. STG Duration 04/03/23 Assessment Summary Assessment Spent increased time today with STM on pt's calfs bilaterally, significant increase in tone, potentially related to his fall last week. Pt instructed to use roller at home to try to decrease calf tone. Physical Therapy Plan Frequency and Duration Frequency of Treatment 2x/Week Plan of Care Start Date 03/04/23 Plan of Care End Date 05/04/23 Therapeutic Interventions Therapeutic Interventions Home Exercise Program,Joint Mobilizations,Manual Therapy, Neuromuscular Re-education, Patient/Caregiver Education, Self-Care/Home Management,Soft Tissue Mobilization,Taping, Therapeutic Activities, Therapeutic Exercises Modalities Cold Pack/Ice Massage,Electric Stimulation,Hot Packs, Iontophoresis,Ultrasound Other Therapeutic Interventions Iontophoresis with Dexamethasone 4 mg/mL Next Visit Focus/Plan Next Note Type Treatment Note Next Visit Plan Review HEP standing TB wrist w / elbow straight. POC: B LE strengthening, joint mobilizations, Bicipital Ionto prn
--- NOTE | 2023-04-08 10:33 | PT.OTN ---
Current Diagnoses Other chronic pain (04/08/23) Derangement of unspecified meniscus due to old tear or injury, right knee (04/08/23) Derangement of unspecified meniscus due to old tear or injury, left knee (04/08/23) Pain in right shoulder (04/08/23) Pain in right knee (04/08/23) Pain in left knee (04/08/23) Pain in unspecified knee (04/08/23) Stiffness of right knee, not elsewhere classified (04/08/23) Stiffness of left knee, not elsewhere classified (04/08/23) Physical Therapy Treatment Note PT-OP-A Visit Information Start: 03/04/23 15:17 Freq: Status: Active Protocol: Document 04/08/23 09:45 DCW (Rec: 04/08/23 10:33 DCW [id number]) Out-Patient Physical Therapy Visit Information Visit Information Visit Type Treatment Note Visit Start Time 09:45 Visit Stop Time 10:30 Total Visit Minutes 45 Visit Number 10 Number of EXTRACTOR MACHINE OPERATOR Visits 0 Evaluation Information Evaluation Date 03/04/23 PT-OP-B Current Condition Start: 03/04/23 15:17 Freq: Status: Active Protocol: Document 03/04/23 14:20 DCW (Rec: 03/07/23 14:48 DCW [id number]) Current Condition History of Current Condition Onset Date Long-standing history Current Complaints Bilateral knee pain, Right shoulder pain, Right hand pain History of Current Condition Pt is a 72 year old male presenting with a long- standing history of bilateral knee and shoulder pain. Pt has long participated in martial arts, which has resulted in multiple injuries. Notes that in the early , he had torn his meniscus bilaterally, with both surgically repairs through partial meniscectomy. They had been doing very well for years, but in September of this year, pt reports he felt a twinge in both knees while working on his golf swing, and then a few days later was helping to move a couch, and re-injured both knees. Pt underwent a further partial meniscectomy on his left knee earlier this year, with plans to have his right knee done whenever I can get it scheduled. Pt reports that while recovering from his most recent meniscus surgery, he was doing some UE workouts, and felt a strain in his right biceps, and has been experiencing ongoing pain in his right anterior shoulder. Pt reports he underwent a L TSA in 2013, has tried to perform some of his post-op exercises on his right arm, which has helped somewhat, but when his right shoulder flares-up, experiences pain and stiffness in his 2nd and 3rd PIP and 3rd DIP in his right hand. Pt complains mostly of just general overall stiffness and pain moving around, wants to strengthen his left LE s/p meniscus repair, and strengthen his right LE pre-meniscus repair. PT-OP-C Subjective Start: 03/04/23 15:17 Freq: Status: Active Protocol: Document 04/08/23 09:45 DCW (Rec: 04/08/23 10:33 DCW [id number]) OP-PT Subjective Patient Comments Patient Comments I was really working on those knots in my calf that we had found last time. I think that' s the leonardo, I actually seem to be walking normally. PT-OP-F Manual Assessment Start: 03/04/23 15:17 Freq: Status: Active Protocol: Document 03/04/23 14:20 DCW (Rec: 03/04/23 17:07 DCW [id number]) Manual Assessments Soft Tissue Assessment Soft Tissue Mobility Assessment Long-head biceps tendon pain, tenderness to palpation 2/4: pain with wincing. Bilateral hamstring and calf hypertonia PT-OP-K Range of Motion Start: 03/04/23 15:17 Freq: Status: Active Protocol: Document 03/04/23 14:20 DCW (Rec: 03/04/23 17:07 DCW [id number]) Knee Goniometric Range of Motion Knee Right Knee ROM WFL No Patient Position Supine Flexion Active (degrees) 123 Extension Active (degrees) 10 Left Knee ROM WFL No Patient Position Supine Flexion Active (degrees) 111 Extension Active (degrees) 8 PT-OP-L Special Tests Start: 03/04/23 15:17 Freq: Status: Active Protocol: Document 03/04/23 14:20 DCW (Rec: 03/04/23 17:07 DCW [id number]) Special Tests Shoulder Special Tests Nahed's Biceps Test Results Positive Right Speed's Biceps Test Results Positive Right Martinez Luke Impingement Test Results Positive Right Grind Labrum Test Results Negative Apprehension Test Test Results Positive Right Anterior Draw Test Results Slight instability bilaterally AC Joint Compression Test Results Negative PT-OP-M Strength Start: 03/04/23 15:17 Freq: Status: Active Protocol: Document 03/04/23 14:20 DCW (Rec: 03/04/23 17:07 DCW [id number]) Hand Correctional Captain/Pinch Strength Hand Strength Right Correctional Captain (lbs) 70 Left Correctional Captain (lbs) 75 Knee Strength Knee Manual Muscle Testing Right Flexion (S2) 3+ Fair+ Extension (L3) 5 Normal Comments Pain with resisted flexion Left Flexion (S2) 3+ Fair+ Extension (L3) 5 Normal Comments Pain with resisted flexion PT-OP-Q Treatments Start: 03/04/23 15:17 Freq: Status: Active Protocol: Document 04/08/23 09:45 DCW (Rec: 04/08/23 10:33 DCW [id number]) Cardio Equipment Recumbent Bicycle Duration (Minutes) 6 Resistance 6 Seat Position 6 Gym Equipment Shuttle Recovery Plyometric hopping Details Hopping Resistance 25# Reps/Time Alternating feet, LE alignment improved Shuttle Balance Red Comments Staggered ball toss a/p, Lateral weight shift Therapeutic Exercises Other Exercises Ladder drill Other Exercise Name Lateral stepping ladder drill Manual Therapy Treatment Soft Tissue Mobilization Calf Body Location B Calf, HS, ITB, quad, add Mobilization Type Instrument Assisted,Rolling Comments Roller PT-OP-R Modalities Start: 03/08/23 13:32 Freq: Status: Active Protocol: Document 03/29/23 14:23 NBM (Rec: 03/29/23 16:15 NBM [id number]) Iontophoresis Treatment Right Anterior Shoulder Treatment Medication Dexamethasone (-) Medication Amount (mL) (ml) 1.0 Treatment Polarity Negative to Negative Active Electrode Placement R Bicipital groove PT-OP-T Assessment and Plan Start: 03/04/23 15:17 Freq: Status: Active Protocol: Document 04/08/23 09:45 DCW (Rec: 04/08/23 10:33 DCW [id number]) Physical Therapy Assessment Impairments Impairments Functional Activities, Functional Mobility,Pain,ROM, Soft Tissue Mobility,Strength, Tone Goals Three Impairment Right shoulder pain radiates into hand Accountant 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 (03/29/23): Pt reports R shoulder almost fully recovered 95% and R hand is amost normal. Pt plans to try golfing in April. LTG Duration 05/04/23 Two Impairment Bilateral knee extension restriction, lacking 8? L and lacking 10? R Accountant Auditor Goal (LTG) Pt to display bilateral knee ROM 0-125? to improve ability to up and down from the ground for gardening. LTG Duration 05/04/23 One Impairment Pt does not have an appropriate home exercise program Short Term Goal (STG) Pt to be independent and compliant with an appropriate HEP (03/22/23): HEP Review w/ emphasis on breathwork d/t breathholding, LE alignment, neutral foot positioning, excessive knee flexion; resisted wrist ex's in standing w/ straight elbow. (03/29/23): HEP review w/ emphasis on LE alignment, improving pain due to excessive knee flexion, and resisted wrist ex's w/ straight arm. STG Duration 04/03/23 Assessment Summary Assessment Pt feeling much better this visit, responded very well to STM of calfs earlier this week . Showing improved balance and tolerance to mild lateral directional changes. Physical Therapy Plan Frequency and Duration Frequency of Treatment 2x/Week Plan of Care Start Date 03/04/23 Plan of Care End Date 05/04/23 Therapeutic Interventions Therapeutic Interventions Home Exercise Program,Joint Mobilizations,Manual Therapy, Neuromuscular Re-education, Patient/Caregiver Education, Self-Care/Home Management,Soft Tissue Mobilization,Taping, Therapeutic Activities, Therapeutic Exercises Modalities Cold Pack/Ice Massage,Electric Stimulation,Hot Packs, Iontophoresis,Ultrasound Other Therapeutic Interventions Iontophoresis with Dexamethasone 4 mg/mL Next Visit Focus/Plan Next Note Type Treatment Note Next Visit Plan Review HEP standing TB wrist w / elbow straight. POC: B LE strengthening, joint mobilizations, Bicipital Ionto prn
--- NOTE | 2023-04-11 11:47 | PT.OTN ---
Current Diagnoses Other chronic pain (04/11/23) Derangement of unspecified meniscus due to old tear or injury, right knee (04/11/23) Derangement of unspecified meniscus due to old tear or injury, left knee (04/11/23) Pain in right shoulder (04/11/23) Pain in right knee (04/11/23) Pain in left knee (04/11/23) Pain in unspecified knee (04/11/23) Stiffness of right knee, not elsewhere classified (04/11/23) Stiffness of left knee, not elsewhere classified (04/11/23) Physical Therapy Treatment Note PT-OP-A Visit Information Start: 03/04/23 15:17 Freq: Status: Active Protocol: Document 04/11/23 11:00 DCW (Rec: 04/11/23 11:47 DCW [id number]) Out-Patient Physical Therapy Visit Information Visit Information Visit Type Treatment Note Visit Start Time 11:00 Visit Stop Time 11:45 Total Visit Minutes 45 Visit Number 11 Number of MANAGER ACUTE Visits 0 Evaluation Information Evaluation Date 03/04/23 PT-OP-B Current Condition Start: 03/04/23 15:17 Freq: Status: Active Protocol: Document 03/04/23 14:20 DCW (Rec: 03/07/23 14:48 DCW [id number]) Current Condition History of Current Condition Onset Date Long-standing history Current Complaints Bilateral knee pain, Right shoulder pain, Right hand pain History of Current Condition Pt is a 72 year old male presenting with a long- standing history of bilateral knee and shoulder pain. Pt has long participated in martial arts, which has resulted in multiple injuries. Notes that in the early , he had torn his meniscus bilaterally, with both surgically repairs through partial meniscectomy. They had been doing very well for years, but in September of this year, pt reports he felt a twinge in both knees while working on his golf swing, and then a few days later was helping to move a couch, and re-injured both knees. Pt underwent a further partial meniscectomy on his left knee earlier this year, with plans to have his right knee done whenever I can get it scheduled. Pt reports that while recovering from his most recent meniscus surgery, he was doing some UE workouts, and felt a strain in his right biceps, and has been experiencing ongoing pain in his right anterior shoulder. Pt reports he underwent a L TSA in 2013, has tried to perform some of his post-op exercises on his right arm, which has helped somewhat, but when his right shoulder flares-up, experiences pain and stiffness in his 2nd and 3rd PIP and 3rd DIP in his right hand. Pt complains mostly of just general overall stiffness and pain moving around, wants to strengthen his left LE s/p meniscus repair, and strengthen his right LE pre-meniscus repair. PT-OP-C Subjective Start: 03/04/23 15:17 Freq: Status: Active Protocol: Document 04/11/23 11:00 DCW (Rec: 04/11/23 11:47 DCW [id number]) OP-PT Subjective Patient Comments Patient Comments They feel really good. I am keron to do a lot more than I was even 3-4 weeks ago. PT-OP-F Manual Assessment Start: 03/04/23 15:17 Freq: Status: Active Protocol: Document 03/04/23 14:20 DCW (Rec: 03/04/23 17:07 DCW [id number]) Manual Assessments Soft Tissue Assessment Soft Tissue Mobility Assessment Long-head biceps tendon pain, tenderness to palpation 2/4: pain with wincing. Bilateral hamstring and calf hypertonia PT-OP-K Range of Motion Start: 03/04/23 15:17 Freq: Status: Active Protocol: Document 03/04/23 14:20 DCW (Rec: 03/04/23 17:07 DCW [id number]) Knee Goniometric Range of Motion Knee Right Knee ROM WFL No Patient Position Supine Flexion Active (degrees) 123 Extension Active (degrees) 10 Left Knee ROM WFL No Patient Position Supine Flexion Active (degrees) 111 Extension Active (degrees) 8 PT-OP-L Special Tests Start: 03/04/23 15:17 Freq: Status: Active Protocol: Document 03/04/23 14:20 DCW (Rec: 03/04/23 17:07 DCW [id number]) Special Tests Shoulder Special Tests Yergason's Biceps Test Results Positive Right Speed's Biceps Test Results Positive Right Martinez Luke Impingement Test Results Positive Right Grind Labrum Test Results Negative Apprehension Test Test Results Positive Right Anterior Draw Test Results Slight instability bilaterally AC Joint Compression Test Results Negative PT-OP-M Strength Start: 03/04/23 15:17 Freq: Status: Active Protocol: Document 03/04/23 14:20 DCW (Rec: 03/04/23 17:07 DCW [id number]) Hand Car Washer/Pinch Strength Hand Strength Right Car Washer (lbs) 70 Left Car Washer (lbs) 75 Knee Strength Knee Manual Muscle Testing Right Flexion (S2) 3+ Fair+ Extension (L3) 5 Normal Comments Pain with resisted flexion Left Flexion (S2) 3+ Fair+ Extension (L3) 5 Normal Comments Pain with resisted flexion PT-OP-Q Treatments Start: 03/04/23 15:17 Freq: Status: Active Protocol: Document 04/11/23 11:00 DCW (Rec: 04/11/23 11:47 DCW [id number]) Cardio Equipment Recumbent Bicycle Duration (Minutes) 6 Resistance 8 Seat Position 6 Gym Equipment Shuttle Balance Red Comments Staggered ball toss a/p, Lateral weight shift Therapeutic Exercises Other Exercises Ladder drill Other Exercise Name Lateral stepping ladder drill Manual Therapy Treatment Soft Tissue Mobilization Calf Body Location B Calf, HS, ITB, quad, add Mobilization Type Instrument Assisted,Rolling Comments Roller Neuro Re-Education Treatment Balance Activities SLS Details SLS Surface Blue Foam Star Slides Details SLS /c sliding opposite foot on slider Comments Fwd, Lateral, Bkwd VCs to maintain COG over stance foot PT-OP-R Modalities Start: 03/08/23 13:32 Freq: Status: Active Protocol: Document 03/29/23 14:23 NBM (Rec: 03/29/23 16:15 NBM [id number]) Iontophoresis Treatment Right Anterior Shoulder Treatment Medication Dexamethasone (-) Medication Amount (mL) (ml) 1.0 Treatment Polarity Negative to Negative Active Electrode Placement R Bicipital groove PT-OP-T Assessment and Plan Start: 03/04/23 15:17 Freq: Status: Active Protocol: Document 04/11/23 11:00 DCW (Rec: 04/11/23 11:47 DCW [id number]) Physical Therapy Assessment Impairments Impairments Functional Activities, Functional Mobility,Pain,ROM, Soft Tissue Mobility,Strength, Tone Goals Three Impairment Right shoulder pain radiates into hand 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 (03/29/23): Pt reports R shoulder almost fully recovered 95% and R hand is amost normal. Pt plans to try golfing in April. LTG Duration 05/04/23 Two Impairment Bilateral knee extension restriction, lacking 8? L and lacking 10? R Prison Goal (LTG) Pt to display bilateral knee ROM 0-125? to improve ability to up and down from the ground for gardening. LTG Duration 05/04/23 One Impairment Pt does not have an appropriate home exercise program Short Term Goal (STG) Pt to be independent and compliant with an appropriate HEP (03/22/23): HEP Review w/ emphasis on breathwork d/t breathholding, LE alignment, neutral foot positioning, excessive knee flexion; resisted wrist ex's in standing w/ straight elbow. (03/29/23): HEP review w/ emphasis on LE alignment, improving pain due to excessive knee flexion, and resisted wrist ex's w/ straight arm. STG Duration 04/03/23 Assessment Summary Assessment Pt showing great progress recently in both mobility and pain levels, has been working very hard at home with self- STM and rolling. Challenged today with balance activities, but pt able to work through it any did very well by end of session. Physical Therapy Plan Frequency and Duration Frequency of Treatment 2x/Week Plan of Care Start Date 03/04/23 Plan of Care End Date 05/04/23 Therapeutic Interventions Therapeutic Interventions Home Exercise Program,Joint Mobilizations,Manual Therapy, Neuromuscular Re-education, Patient/Caregiver Education, Self-Care/Home Management,Soft Tissue Mobilization,Taping, Therapeutic Activities, Therapeutic Exercises Modalities Cold Pack/Ice Massage,Electric Stimulation,Hot Packs, Iontophoresis,Ultrasound Other Therapeutic Interventions Iontophoresis with Dexamethasone 4 mg/mL Next Visit Focus/Plan Next Note Type Treatment Note Next Visit Plan Review HEP standing TB wrist w / elbow straight. POC: B LE strengthening, joint mobilizations, Bicipital Ionto prn
--- NOTE | 2023-04-18 11:45 | PT.OTN ---
Current Diagnoses Other chronic pain (04/18/23) Derangement of unspecified meniscus due to old tear or injury, right knee (04/18/23) Derangement of unspecified meniscus due to old tear or injury, left knee (04/18/23) Pain in right shoulder (04/18/23) Pain in right knee (04/18/23) Pain in left knee (04/18/23) Stiffness of right knee, not elsewhere classified (04/18/23) Stiffness of left knee, not elsewhere classified (04/18/23) Physical Therapy Treatment Note PT-OP-A Visit Information Start: 03/04/23 15:17 Freq: Status: Active Protocol: Document 04/18/23 11:00 DCW (Rec: 04/18/23 11:45 DCW [id number]) Out-Patient Physical Therapy Visit Information Visit Information Visit Type Treatment Note Visit Start Time 11:00 Visit Stop Time 11:45 Total Visit Minutes 45 Visit Number [address] RECORDER Visits 0 Evaluation Information Evaluation Date 03/04/23 PT-OP-B Current Condition Start: 03/04/23 15:17 Freq: Status: Active Protocol: Document 03/04/23 14:20 DCW (Rec: 03/07/23 14:48 DCW [id number]) Current Condition History of Current Condition Onset Date Long-standing history Current Complaints Bilateral knee pain, Right shoulder pain, Right hand pain History of Current Condition Pt is a 72 year old male presenting with a long- standing history of bilateral knee and shoulder pain. Pt has long participated in martial arts, which has resulted in multiple injuries. Notes that in the early , he had torn his meniscus bilaterally, with both surgically repairs through partial meniscectomy. They had been doing very well for years, but in September of this year, pt reports he felt a twinge in both knees while working on his golf swing, and then a few days later was helping to move a couch, and re-injured both knees. Pt underwent a further partial meniscectomy on his left knee earlier this year, with plans to have his right knee done whenever I can get it scheduled. Pt reports that while recovering from his most recent meniscus surgery, he was doing some UE workouts, and felt a strain in his right biceps, and has been experiencing ongoing pain in his right anterior shoulder. Pt reports he underwent a L TSA in 2013, has tried to perform some of his post-op exercises on his right arm, which has helped somewhat, but when his right shoulder flares-up, experiences pain and stiffness in his 2nd and 3rd PIP and 3rd DIP in his right hand. Pt complains mostly of just general overall stiffness and pain moving around, wants to strengthen his left LE s/p meniscus repair, and strengthen his right LE pre-meniscus repair. PT-OP-C Subjective Start: 03/04/23 15:17 Freq: Status: Active Protocol: Document 04/18/23 11:00 DCW (Rec: 04/18/23 11:45 DCW [id number]) OP-PT Subjective Patient Comments Patient Comments Pt regrouted his shower this past weekend, which involved 3 -4 hours of squatting as he was scraping the old grout out , which was excruciating at the time, but no lingering effects. PT-OP-F Manual Assessment Start: 03/04/23 15:17 Freq: Status: Active Protocol: Document 03/04/23 14:20 DCW (Rec: 03/04/23 17:07 DCW [id number]) Manual Assessments Soft Tissue Assessment Soft Tissue Mobility Assessment Long-head biceps tendon pain, tenderness to palpation 2/4: pain with wincing. Bilateral hamstring and calf hypertonia PT-OP-K Range of Motion Start: 03/04/23 15:17 Freq: Status: Active Protocol: Document 03/04/23 14:20 DCW (Rec: 03/04/23 17:07 DCW [id number]) Knee Goniometric Range of Motion Knee Right Knee ROM WFL No Patient Position Supine Flexion Active (degrees) 123 Extension Active (degrees) 10 Left Knee ROM WFL No Patient Position Supine Flexion Active (degrees) 111 Extension Active (degrees) 8 PT-OP-L Special Tests Start: 03/04/23 15:17 Freq: Status: Active Protocol: Document 03/04/23 14:20 DCW (Rec: 03/04/23 17:07 DCW [id number]) Special Tests Shoulder Special Tests Nahed's Biceps Test Results Positive Right Speed's Biceps Test Results Positive Right Martinez Luke Impingement Test Results Positive Right Grind Labrum Test Results Negative Apprehension Test Test Results Positive Right Anterior Draw Test Results Slight instability bilaterally AC Joint Compression Test Results Negative PT-OP-M Strength Start: 03/04/23 15:17 Freq: Status: Active Protocol: Document 03/04/23 14:20 DCW (Rec: 03/04/23 17:07 DCW [id number]) Hand Assembler Small Products/Pinch Strength Hand Strength Right Assembler Small Products (lbs) 70 Left Assembler Small Products (lbs) 75 Knee Strength Knee Manual Muscle Testing Right Flexion (S2) 3+ Fair+ Extension (L3) 5 Normal Comments Pain with resisted flexion Left Flexion (S2) 3+ Fair+ Extension (L3) 5 Normal Comments Pain with resisted flexion PT-OP-Q Treatments Start: 03/04/23 15:17 Freq: Status: Active Protocol: Document 04/18/23 11:00 DCW (Rec: 04/18/23 11:45 DCW [id number]) Cardio Equipment Recumbent Bicycle Duration (Minutes) 6 Resistance 8 Seat Position 6 Gym Equipment Shuttle Recovery Plyometric hopping Details Hopping Resistance 25# Reps/Time Alternating feet, LE alignment improved Shuttle Balance Red Comments Staggered ball toss a/p, Lateral weight shift Therapeutic Exercises Other Exercises Ladder drill Other Exercise Name Lateral stepping ladder drill Comments Fwd, Bkwd Manual Therapy Treatment Soft Tissue Mobilization Calf Body Location B Calf, quad, add Mobilization Type Strumming,Sustained Pressure Neuro Re-Education Treatment Balance Activities Star Slides Details SLS /c sliding opposite foot on slider Comments Fwd, Lateral, Bkwd VCs to maintain COG over stance foot PT-OP-R Modalities Start: 03/08/23 13:32 Freq: Status: Active Protocol: Document 03/29/23 14:23 NBM (Rec: 03/29/23 16:15 NBM [id number]) Iontophoresis Treatment Right Anterior Shoulder Treatment Medication Dexamethasone (-) Medication Amount (mL) (ml) 1.0 Treatment Polarity Negative to Negative Active Electrode Placement R Bicipital groove PT-OP-T Assessment and Plan Start: 03/04/23 15:17 Freq: Status: Active Protocol: Document 04/18/23 11:00 DCW (Rec: 04/18/23 11:45 DCW [id number]) Physical Therapy Assessment Impairments Impairments Functional Activities, Functional Mobility,Pain,ROM, Soft Tissue Mobility,Strength, Tone Goals Three Impairment Right shoulder pain radiates into hand Correction Goal (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 (03/29/23): Pt reports R shoulder almost fully recovered 95% and R hand is amost normal. Pt plans to try golfing in April. LTG Duration 05/04/23 Two Impairment Bilateral knee extension restriction, lacking 8? L and lacking 10? R Oracle Architect Goal (LTG) Pt to display bilateral knee ROM 0-125? to improve ability to up and down from the ground for gardening. LTG Duration 05/04/23 One Impairment Pt does not have an appropriate home exercise program Short Term Goal (STG) Pt to be independent and compliant with an appropriate HEP (03/22/23): HEP Review w/ emphasis on breathwork d/t breathholding, LE alignment, neutral foot positioning, excessive knee flexion; resisted wrist ex's in standing w/ straight elbow. (03/29/23): HEP review w/ emphasis on LE alignment, improving pain due to excessive knee flexion, and resisted wrist ex's w/ straight arm. STG Duration 04/03/23 Assessment Summary Assessment Pt doing very well overall, has returned to usual activities like golf and housework with some mild pain immediately afterward, but no lingering effects. Physical Therapy Plan Frequency and Duration Frequency of Treatment 2x/Week Plan of Care Start Date 03/04/23 Plan of Care End Date 05/04/23 Therapeutic Interventions Therapeutic Interventions Home Exercise Program,Joint Mobilizations,Manual Therapy, Neuromuscular Re-education, Patient/Caregiver Education, Self-Care/Home Management,Soft Tissue Mobilization,Taping, Therapeutic Activities, Therapeutic Exercises Modalities Cold Pack/Ice Massage,Electric Stimulation,Hot Packs, Iontophoresis,Ultrasound Other Therapeutic Interventions Iontophoresis with Dexamethasone 4 mg/mL Next Visit Focus/Plan Next Note Type Treatment Note Next Visit Plan One visits remaining. Review golf swing mechanics. POC: B LE strengthening, joint mobilizations, Bicipital Ionto prn
--- NOTE | 2023-04-20 10:42 | PT.OTN ---
Current Diagnoses Other chronic pain (04/20/23) Derangement of unspecified meniscus due to old tear or injury, right knee (04/20/23) Derangement of unspecified meniscus due to old tear or injury, left knee (04/20/23) Pain in right shoulder (04/20/23) Pain in right knee (04/20/23) Pain in left knee (04/20/23) Stiffness of right knee, not elsewhere classified (04/20/23) Stiffness of left knee, not elsewhere classified (04/20/23) Physical Therapy Treatment Note PT-OP-A Visit Information Start: 03/04/23 15:17 Freq: Status: Active Protocol: Document 04/20/23 10:15 DCW (Rec: 04/20/23 10:42 DCW [id number]) Out-Patient Physical Therapy Visit Information Visit Information Visit Type Discharge Summary Visit Start Time 10:15 Visit Stop Time 10:40 Total Visit Minutes 25 Visit Number 14 Number of FRIT MIXER Visits 0 Evaluation Information Evaluation Date 03/04/23 PT-OP-B Current Condition Start: 03/04/23 15:17 Freq: Status: Active Protocol: Document 03/04/23 14:20 DCW (Rec: 03/07/23 14:48 DCW [id number]) Current Condition History of Current Condition Onset Date Long-standing history Current Complaints Bilateral knee pain, Right shoulder pain, Right hand pain History of Current Condition Pt is a 72 year old male presenting with a long- standing history of bilateral knee and shoulder pain. Pt has long participated in martial arts, which has resulted in multiple injuries. Notes that in the early , he had torn his meniscus bilaterally, with both surgically repairs through partial meniscectomy. They had been doing very well for years, but in September of this year, pt reports he felt a twinge in both knees while working on his golf swing, and then a few days later was helping to move a couch, and re-injured both knees. Pt underwent a further partial meniscectomy on his left knee earlier this year, with plans to have his right knee done whenever I can get it scheduled. Pt reports that while recovering from his most recent meniscus surgery, he was doing some UE workouts, and felt a strain in his right biceps, and has been experiencing ongoing pain in his right anterior shoulder. Pt reports he underwent a L TSA in 2013, has tried to perform some of his post-op exercises on his right arm, which has helped somewhat, but when his right shoulder flares-up, experiences pain and stiffness in his 2nd and 3rd PIP and 3rd DIP in his right hand. Pt complains mostly of just general overall stiffness and pain moving around, wants to strengthen his left LE s/p meniscus repair, and strengthen his right LE pre-meniscus repair. PT-OP-C Subjective Start: 03/04/23 15:17 Freq: Status: Active Protocol: Document 04/20/23 10:15 DCW (Rec: 04/20/23 10:18 DCW [id number]) OP-PT Subjective Patient Comments Patient Comments I'm really to the point where I pretty much feel normal. I' m sore today after golfing yesterday, but overall it's great. PT-OP-F Manual Assessment Start: 03/04/23 15:17 Freq: Status: Active Protocol: Document 04/20/23 10:15 DCW (Rec: 04/20/23 10:31 DCW [id number]) Manual Assessments Soft Tissue Assessment Soft Tissue Mobility Assessment Mild bilateral hamstring and calf hypertonia, L better than R PT-OP-K Range of Motion Start: 03/04/23 15:17 Freq: Status: Active Protocol: Document 04/20/23 10:15 DCW (Rec: 04/20/23 10:31 DCW [id number]) Knee Goniometric Range of Motion Knee Right Patient Position Supine Flexion Active (degrees) 130 Extension Active (degrees) 5 Left Patient Position Supine Flexion Active (degrees) 126 Extension Active (degrees) 4 PT-OP-L Special Tests Start: 03/04/23 15:17 Freq: Status: Active Protocol: Document 04/20/23 10:15 DCW (Rec: 04/20/23 10:31 DCW [id number]) Special Tests Shoulder Special Tests Yergason's Biceps Test Results Negative Speed's Biceps Test Results Negative Martinez Luke Impingement Test Results Negative PT-OP-M Strength Start: 03/04/23 15:17 Freq: Status: Active Protocol: Document 04/20/23 10:15 DCW (Rec: 04/20/23 10:31 DCW [id number]) Hand Personnel Counselor/Pinch Strength Hand Strength Right Personnel Counselor (lbs) 75 Left Personnel Counselor (lbs) 80 Knee Strength Knee Manual Muscle Testing Right Flexion (S2) 4- Good- Extension (L3) 5 Normal Comments Pain with resisted flexion Left Flexion (S2) 4 Good Extension (L3) 5 Normal PT-OP-Q Treatments Start: 03/04/23 15:17 Freq: Status: Active Protocol: Document 04/20/23 10:15 DCW (Rec: 04/20/23 10:42 DCW [id number]) Cardio Equipment Recumbent Bicycle Duration (Minutes) 6 Resistance 8 Seat Position 6 Self-Care/Home Management Treatment Education Other Education Review of HEP, discussed potential equipment pt looking to purchase in order to continue progress at home. PT-OP-R Modalities Start: 03/08/23 13:32 Freq: Status: Active Protocol: Document 03/29/23 14:23 NBM (Rec: 03/29/23 16:15 NBM [id number]) Iontophoresis Treatment Right Anterior Shoulder Treatment Medication Dexamethasone (-) Medication Amount (mL) (ml) 1.0 Treatment Polarity Negative to Negative Active Electrode Placement R Bicipital groove PT-OP-T Assessment and Plan Start: 03/04/23 15:17 Freq: Status: Active Protocol: Document 04/20/23 10:15 DCW (Rec: 04/20/23 10:42 DCW [id number]) Physical Therapy Assessment Impairments Impairments Functional Activities, Functional Mobility,Pain,ROM, Soft Tissue Mobility,Strength, Tone Goals Three Impairment Right shoulder pain radiates into hand Half-Way Goal (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 (03/29/23): Pt reports R shoulder almost fully recovered 95% and R hand is amost normal. Pt plans to try golfing in April. LTG Duration Met Two Impairment Bilateral knee extension restriction, lacking 8? L and lacking 10? R Correctional Corporal Goal (LTG) Pt to display bilateral knee ROM 0-125? to improve ability to up and down from the ground for gardening. LTG Duration 05/04/23 - Improving, met flexion goals One Impairment Pt does not have an appropriate home exercise program Short Term Goal (STG) Pt to be independent and compliant with an appropriate HEP (03/22/23): HEP Review w/ emphasis on breathwork d/t breathholding, LE alignment, neutral foot positioning, excessive knee flexion; resisted wrist ex's in standing w/ straight elbow. (03/29/23): HEP review w/ emphasis on LE alignment, improving pain due to excessive knee flexion, and resisted wrist ex's w/ straight arm. STG Duration Met Assessment Summary Assessment Pt largely has met all goals, only slightly behind with bilateral knee extension ROM, between 4-5? lacking bilaterally, but still much improved. Pt feels very comfortable with HEP, has returned to usual activities, appropriate to discharge from skilled PT at this time. Physical Therapy Plan Frequency and Duration Frequency of Treatment 2x/Week Plan of Care Start Date 03/04/23 Plan of Care End Date 05/04/23 Therapeutic Interventions Therapeutic Interventions Home Exercise Program,Joint Mobilizations,Manual Therapy, Neuromuscular Re-education, Patient/Caregiver Education, Self-Care/Home Management,Soft Tissue Mobilization,Taping, Therapeutic Activities, Therapeutic Exercises Modalities Cold Pack/Ice Massage,Electric Stimulation,Hot Packs, Iontophoresis,Ultrasound Other Therapeutic Interventions Iontophoresis with Dexamethasone 4 mg/mL Discharge Physical Therapy Discharge Reasons Goals Met Next Visit Focus/Plan Next Note Type Treatment Note Next Visit Plan POC: B LE strengthening, joint mobilizations, Bicipital Ionto prn
== END 2023-04-22 10:56 | disposition home or self-care (01) ==
LOC: PHYS 10:15
PROVIDERS: Family Provider Family Medicine; PCP Family Medicine; Referring Provider Family Medicine; Visit Provider Family Medicine
DX: G89.29 Other chronic pain (principal); M25.511 Pain in right shoulder; M25.562 Pain in left knee; M25.561 Pain in right knee; M25.661 Stiffness of right knee, not elsewhere classified; M25.662 Stiffness of left knee, not elsewhere classified; M23.206 Derangement of unspecified meniscus due to old tear or injury, right knee; M23.207 Derangement of unspecified meniscus due to old tear or injury, left knee
CPT/HCPCS: 97110; 97112; 97140; 97163; 97535

== ENCOUNTER → 2024-01-25 09:25 | Outpatient (CLI) | payer MEDICARE, BC, SELFPAY ==
[2024-01-25 10:05] LABS: Alanine Aminotransferase 24 IU/L (<50); Albumin 4.4 g/dL (3.5-5.0); Albumin Globulin Ratio 1.6 (1.0-2.8); Alkaline Phosphatase 80 U/L (38-126); Aspartate Aminotransferase 31 IU/L (17-59); Bilirubin Total 0.8 mg/dL (0.2-1.3); Blood Urea Nitrogen 20 mg/dL (9-20); Calcium 9.1 mg/dL (8.4-10.2); Carbon Dioxide 26 mmol/L (22-32); Chloride 109 mmol/L (98-107); Cholesterol 167 mg/dL (140-199); Estimated Glomerular Filt Rate > 60 mL/min (>60); Globulin 2.8 g/dL (1.7-4.1); Glucose 114 mg/dL (80-110); HDL Cholesterol 37 mg/dL (40-60); HEMOLYSIS < 15 (0-50); LDL Cholesterol Calculated 91 mg/dL (<100); Sodium 139 mmol/L (137-145); Total Protein 7.2 g/dL (6.3-8.2); Triglycerides 195 mg/dL (35-150)
[2024-01-25 10:34] LABS: TSH w/ Reflex to FT4 5.45 uIU/mL (0.47-4.68)
[2024-01-25 10:59] LABS: Free T4, Direct Thyroxine 0.69 ng/dL (0.78-2.19)
== END ==
PROVIDERS: Family Provider Family Medicine; PCP Family Medicine; Referring Provider Family Medicine; Visit Provider Family Medicine
DX: E03.9 Hypothyroidism, unspecified (principal); Z00.00 Encounter for general adult medical examination without abnormal findings
CPT/HCPCS: 36415; 80053; 80061; 84439; 84443; 86803

== ENCOUNTER → 2024-02-01 07:44 | Outpatient (CLI) | payer MEDICARE, BC, SELFPAY ==
--- NOTE | 2024-02-01 07:45 | DI.US.S_ITS ---
PROCEDURE: US ABD AORTA ANEURYSM SCREEN INDICATIONS: screening TECHNIQUE: Real time scanning was performed of the aorta and iliac arteries, with image documentation. COMPARISON: None. FINDINGS: Aorta: Proximal aortic diameter measures 2.1 x 2.3 cm. Mid-aorta measures 2.4 x 2.4 cm. Distal aortic diameter is 1.6 x 1.6 cm. Iliac arteries: Right common iliac artery measures 0.9 x 0.8 cm. Left common iliac artery measures 0.9 x 0.8 cm. IMPRESSION: No aortic aneurysm or ectasia. Dictated by: Osvaldo Vergara M.D. on 02/01/2024 at 8:55 Approved by: Osvaldo Vergara M.D. on 02/01/2024 at 8:56
== END ==
LOC: US 07:45
PROVIDERS: Family Provider Family Medicine; PCP Family Medicine; Referring Provider Family Medicine; Visit Provider Family Medicine
DX: Z13.6 Encounter for screening for cardiovascular disorders (principal)
CPT/HCPCS: 76706

== ENCOUNTER → 2024-06-13 13:53 | Outpatient (CLI) | payer MEDICARE, BC, SELFPAY ==
[2024-06-13 16:03] LABS: TSH w/ Reflex to FT4 2.81 uIU/mL (0.47-4.68)
== END ==
PROVIDERS: Family Provider Family Medicine; PCP Family Medicine; Referring Provider Family Medicine; Visit Provider Family Medicine
DX: E03.9 Hypothyroidism, unspecified (principal)
CPT/HCPCS: 36415; 84443

== ENCOUNTER → 2025-01-16 14:34 | Outpatient (CLI) | payer MEDICARE, BC, SELFPAY ==
[2025-01-16 15:05] LABS: Alanine Aminotransferase 28 IU/L (<50); Albumin 4.7 g/dL (3.5-5.0); Albumin Globulin Ratio 1.7 (1.0-2.8); Alkaline Phosphatase 71 U/L (38-126); Aspartate Aminotransferase 38 IU/L (17-59); BUN Creatinine Ratio 29.3 (6-22); Bilirubin Total 0.6 mg/dL (0.2-1.3); Blood Urea Nitrogen 24 mg/dL (9-20); Calcium 9.7 mg/dL (8.4-10.2); Carbon Dioxide 27 mmol/L (22-32); Chloride 103 mmol/L (98-107); Cholesterol 174 mg/dL (140-199); Estimated Glomerular Filt Rate > 60 mL/min (>60); Globulin 2.8 g/dL (1.7-4.1); Glucose 94 mg/dL (70-99); HDL Cholesterol 39 mg/dL (40-60); HEMOLYSIS < 15 (0-50); LDL Cholesterol Calculated 81 mg/dL (<100); Potassium 4.1 mmol/L (3.4-5.1); Sodium 139 mmol/L (137-145); Total Protein 7.5 g/dL (6.3-8.2); Triglycerides 270 mg/dL (35-150)
[2025-01-16 15:35] LABS: TSH w/ Reflex to FT4 2.88 uIU/mL (0.47-4.68)
== END ==
LOC: LAB 14:36
PROVIDERS: PCP Family Medicine; Referring Provider Family Medicine; Visit Provider Family Medicine
DX: E03.9 Hypothyroidism, unspecified (principal); E78.2 Mixed hyperlipidemia
CPT/HCPCS: 36415; 80053; 80061; 84443